=== PATIENT | female | born 1965 | race African-American/Black ===

== ENCOUNTER 2019-06-26 08:47 | Emergency (ER) | payer BC, MEDICAID ==
[~2019-06-26] VITALS: Ht 175.3 cm; Wt 85.3 kg
[2019-06-26 09:11] VITALS: BP 137/77
[2019-06-26 09:59] LABS: Urine Bacteria NONE SEEN /hpf (None Seen); Urine Blood Negative /uL (Negative); Urine Mucus FEW (None Seen); Urine WBC 1 /hpf (0 - 5)
== END 2019-06-26 10:35 | disposition home or self-care (01) ==
LOC: ER 08:47
DX: M54.42 Lumbago with sciatica, left side (principal); M54.41 Lumbago with sciatica, right side; J45.909 Unspecified asthma, uncomplicated
CPT/HCPCS: 72100; 81001

== ENCOUNTER 2019-07-17 12:08 | Emergency (ER) | payer BC, MEDICAID ==
[~2019-07-17] VITALS: Ht 175.3 cm; Wt 86.2 kg
[2019-07-17] MEDS ORDERED: SODIUM CHLORIDE 0.9% 1,000 ML IVB ONE (12:39)
[2019-07-17] MEDS ORDERED: MORPHINE SULFATE 4 MG/ML SYR/VIAL IV ONE (12:45)
[2019-07-17] MEDS ORDERED: ONDANSETRON HCL 4 MG/2 ML VIAL IV ONE (12:45)
[2019-07-17 13:16] LABS: Eosinophils # (auto) 0.1 uL; Monocytes # (auto) 0.4 uL; Monocytes % (auto) 7.8 % (0.0-12.0)
[2019-07-17 13:18] LABS: Basophils # (auto) 0 uL; Basophils % (auto) 0.6 % (0.0-2.0); Eosinophils % (auto) 1.7 % (0.0-7.0); Hematocrit 38.2 % (36.0-46.0); Lymphocytes # (auto) 1.3 uL; Lymphocytes % (auto) 22.7 % (10.0-50.0); Mean Corpuscular Hemoglobin 22.1 pg (28.0-32.0); Mean Corpuscular Hgb Conc. 31.4 g/dL (32.0-36.0); Mean Corpuscular Volume 70.5 fL (80.0-100.0); Neutrophils # (auto) 3.8 uL; Neutrophils % (auto) 67.2 % (37.0-80.0); Nucleated Red Blood Cells % 0.2 %; Platelet Count (auto) 185 10^3/uL (140-450); Red Blood Cells 5.42 10^6/uL (4.0-5.20); Red Cell Distribution Width 14.7 % (11.8-14.3); White Blood Cell 5.7 10^3/uL (4.4-10.8)
[2019-07-17 15:00] VITALS: BP 127/79
[2019-07-17 15:36] LABS: BUN/Creatinine Ratio 13.6; Potassium 3.9 mmol/L (3.5-5.1)
[2019-07-17 15:37] LABS: Albumin 3.7 g/dL (3.4-5.0); Bilirubin, Total 0.3 mg/dL (0.2-1.0); Calcium 8.6 mg/dL (8.5-10.1); Total Protein 7.9 g/dL (6.4-8.2)
== END 2019-07-17 15:37 | disposition home or self-care (01) ==
LOC: ER 12:08
DX: R10.9 Unspecified abdominal pain (principal); J45.909 Unspecified asthma, uncomplicated; Z90.710 Acquired absence of both cervix and uterus; Z98.51 Tubal ligation status; Z88.0 Allergy status to penicillin
CPT/HCPCS: 36415; 74176; 80053; 83690; 85025; 94761; 96361; 96374; 96375; 99284; J2270; J2405

== ENCOUNTER → 2019-12-20 | Emergency (ER) | payer BC, MEDICAID ==
[~2019-12-20] VITALS: Ht 172.7 cm; Wt 86.2 kg
[~2019-12-20] MED LIST: IBUPROFEN 800 MG TAB PO ONE; KETOROLAC TROMETH 15 mg/ml 1ML VL IV ONE; fentaNYL CITRATE 100 MCG/2 ML VL IV ONE
[2019-12-20 23:00] VITALS: BP 123/73
== END | disposition home or self-care (01) ==
LOC: EDUNIT# 20:45 → EDBD 20:52 → ER 20:52
DX: S52.502A Unspecified fracture of the lower end of left radius, initial encounter for closed fracture (principal); S63.075A Dislocation of distal end of left ulna, initial encounter; S52.612A Displaced fracture of left ulna styloid process, initial encounter for closed fracture; S93.492A Sprain of other ligament of left ankle, initial encounter; S73.102A Unspecified sprain of left hip, initial encounter; J45.909 Unspecified asthma, uncomplicated; Z98.51 Tubal ligation status; Z90.710 Acquired absence of both cervix and uterus; Z88.0 Allergy status to penicillin; W19.XXXA Unspecified fall, initial encounter; Y93.89 Activity, other specified; Y92.89 Other specified places as the place of occurrence of the external cause; Y99.8 Other external cause status
CPT/HCPCS: 29125; 70450; 73080; 73110; 73502; 73610; 96374; 99284; J3010

== ENCOUNTER 2020-03-10 19:16 | Emergency (ER) | payer BC, MEDICAID ==
[~2020-03-10] VITALS: Ht 175.3 cm; Wt 86.2 kg
[2020-03-10 20:24] LABS: Basophils # (auto) 0 10 ^3/uL (0-0.2); Basophils % (auto) 0.4 % (0.0-2.0); Eosinophils # (auto) 0.1 10 ^3/uL (0-0.8); Hemoglobin 12.8 g/dL (12.2-16.2)
[2020-03-10 20:26] LABS: Eosinophils % (auto) 1.1 % (0.0-7.0); Hematocrit 40.8 % (36.0-46.0); Lymphocytes # (auto) 2.2 10 ^3/uL (0.4-5.4); Lymphocytes % (auto) 32.5 % (10.0-50.0); Mean Corpuscular Hemoglobin 22.2 pg (28.0-32.0); Mean Corpuscular Hgb Conc. 31.3 g/dL (32.0-36.0); Mean Corpuscular Volume 70.8 fL (80.0-100.0); Monocytes # (auto) 0.6 10 ^3/uL (0-1.3); Monocytes % (auto) 9.2 % (0.0-12.0); Neutrophils # (auto) 3.8 10 ^3/uL (1.6-8.6); Neutrophils % (auto) 56.8 % (37.0-80.0); Nucleated Red Blood Cells % 0.1 %; Platelet Count (auto) 163 10^3/uL (140-450); Red Blood Cells 5.75 10^6/uL (4.0-5.20); Red Cell Distribution Width 15.1 % (11.8-14.3); White Blood Cell 6.7 10^3/uL (4.4-10.8)
[2020-03-10 20:40] LABS: Anion Gap 8 (5-15); Blood Urea Nitrogen 11 mg/dL (7-18); Calcium 9.2 mg/dL (8.5-10.1); Carbon Dioxide 26 mmol/L (21-32); Chloride 107 mmol/L (98-107); Glucose 89 mg/dL (74-106); Magnesium 2.4 mg/dL (1.6-2.6); Potassium 3.3 mmol/L (3.5-5.1); Sodium 141 mmol/L (136-145)
[2020-03-10 20:42] LABS: Alanine Aminotransferase 21 U/L (13-56); Aspartate Aminotransferase 20 U/L (15-37); BUN/Creatinine Ratio 11.8; GFR African American 80 mL/min; GFR Non-African American 67 mL/min
[2020-03-10 20:44] LABS: Alkaline Phosphatase 154 U/L (45-117); Bilirubin, Total 0.5 mg/dL (0.2-1.0); Total Protein 9.1 g/dL (6.4-8.2)
[2020-03-10 20:58] LABS: Urine Bacteria NONE SEEN /hpf (None Seen); Urine Blood Negative /uL (Negative); Urine Specific Gravity 1.014 (1.001-1.035); Urine WBC 1 /hpf (0 - 5)
[2020-03-10] MEDS ORDERED: SODIUM CHLORIDE 0.9% 1,000 ML IVB ONE (21:03)
[2020-03-10 21:31] LABS: INR 0.96 (0.9-1.15); Partial Thromboplastin Time 26.8 sec (23.64-32.05)
[2020-03-10] MEDS ORDERED: ALBUTEROL SULF HFA 90MCG INH 200DOSE IN SCH (22:00)
[2020-03-10] MEDS ORDERED: POTASSIUM CHL 20 Meq TABLET PO ONE (22:00)
[2020-03-10] MEDS ORDERED: AZITHROMYCIN 500MG/ 250ML 250 ML IV ONE (22:00)
[2020-03-10] MEDS ORDERED: IOHEXOL 350 MG/ML 100ML IJ ONE (22:09)
[2020-03-11 00:08] VITALS: BP 132/59
== END 2020-03-11 01:54 | disposition home or self-care (01) ==
LOC: ER 19:17
DX: J45.909 Unspecified asthma, uncomplicated (principal); Z20.828 Contact with and (suspected) exposure to other viral communicable diseases; J20.9 Acute bronchitis, unspecified; R79.1 Abnormal coagulation profile; E87.6 Hypokalemia; Z86.2 Personal history of diseases of the blood and blood-forming organs and certain disorders involving the immune mechanism
CPT/HCPCS: 36415; 71275; 80053; 81001; 83735; 83880; 84484; 85025; 85379; 85610; 85730; 87070; 87635; 87804; 87880; 93005; 96365; 96366; 99285; J0456; Q9967; U0003; 96368

== ENCOUNTER 2020-06-16 06:18 | Emergency (ER) | payer BC, MEDICAID ==
[~2020-06-16] VITALS: Ht 177.8 cm; Wt 84.8 kg
[2020-06-16 07:06] LABS: Basophils # (auto) 0 10 ^3/uL (0-0.2); Eosinophils # (auto) 0.1 10 ^3/uL (0-0.8); Hematocrit 36.4 % (36.0-46.0); Hemoglobin 11.5 g/dL (12.2-16.2); Mean Corpuscular Hemoglobin 22.1 pg (28.0-32.0); Monocytes # (auto) 0.6 10 ^3/uL (0-1.3); Red Blood Cells 5.19 10^6/uL (4.0-5.20)
[2020-06-16 07:08] LABS: Basophils % (auto) 0.4 % (0.0-2.0); Eosinophils % (auto) 2.1 % (0.0-7.0); Lymphocytes # (auto) 1.6 10 ^3/uL (0.4-5.4); Lymphocytes % (auto) 34.3 % (10.0-50.0); Mean Corpuscular Hgb Conc. 31.6 g/dL (32.0-36.0); Monocytes % (auto) 13.5 % (0.0-12.0); Neutrophils # (auto) 2.3 10 ^3/uL (1.6-8.6); Neutrophils % (auto) 49.7 % (37.0-80.0); Platelet Count (auto) 165 10^3/uL (140-450); Red Cell Distribution Width 14.5 % (11.8-14.3); White Blood Cell 4.7 10^3/uL (4.4-10.8)
[2020-06-16 07:22] LABS: Albumin 3.8 g/dL (3.4-5.0); Anion Gap 5 (5-15); Blood Urea Nitrogen 13 mg/dL (7-18); Carbon Dioxide 25 mmol/L (21-32); Chloride 110 mmol/L (98-107); Glucose 89 mg/dL (74-106); Sodium 140 mmol/L (136-145)
[2020-06-16 07:26] LABS: INR 0.98 (0.9-1.15); Partial Thromboplastin Time 26.2 sec (23.0-31.2)
[2020-06-16 07:29] LABS: Alanine Aminotransferase 20 U/L (13-56); Alkaline Phosphatase 132 U/L (45-117); Aspartate Aminotransferase 17 U/L (15-37); BUN/Creatinine Ratio 16.7; Bilirubin, Total 0.4 mg/dL (0.2-1.0); GFR African American 99 mL/min; GFR Non-African American 81 mL/min
[2020-06-16] MEDS ORDERED: MECLIZINE HCL 25 MG TAB PO ONE (09:00)
[2020-06-16] MEDS ORDERED: IPRATROPIUM BROM 0.5 MG/2.5ML INH SOL NEB ONE ×2 (09:00→13:15)
[2020-06-16] MEDS ORDERED: methylPREDNISolone SOD SUCC 125 MG/2 ML VL IV ONE (09:00)
[2020-06-16] MEDS ORDERED: ALBUTEROL SULF 2.5 MG/0.5ML(0.5%) NEB SOLN NEB ONE ×2 (09:00→13:15)
[2020-06-16] MEDS ORDERED: AZITHROMYCIN 500MG/ 250ML 250 ML IV ONE (09:00)
[2020-06-16 10:09] LABS: Urine Bacteria FEW /hpf (None Seen); Urine Blood Negative /uL (Negative); Urine Specific Gravity 1.012 (1.001-1.035); Urine WBC 4 /hpf (0 - 5)
[2020-06-16] MEDS ORDERED: KETOROLAC TROMETH 30 MG/ML 1ML VIAL IV ONE (13:15)
[2020-06-16 14:00] VITALS: BP 126/63
== END 2020-06-16 16:26 | disposition home or self-care (01) ==
LOC: ER 06:18
DX: J45.41 Moderate persistent asthma with (acute) exacerbation (principal); N39.0 Urinary tract infection, site not specified; Z20.828 Contact with and (suspected) exposure to other viral communicable diseases
CPT/HCPCS: 36415; 71045; 80053; 81001; 83880; 84484; 85025; 85610; 85730; 87426; 93005; 94640; 96365; 96366; 96375; 99285; C9803; J0456; J1885; J2930; J8597; U0003

== ENCOUNTER 2020-08-10 06:22 | Emergency (ER) | payer BC, MEDICAID ==
[~2020-08-10] VITALS: Ht 180.3 cm; Wt 86.2 kg
[2020-08-10] MEDS ORDERED: SODIUM CHLORIDE 0.9% 1,000 ML IV ONE ×2 (07:00)
[2020-08-10 07:16] LABS: Basophils # (auto) 0 10 ^3/uL (0-0.2); Hematocrit 37.5 % (36.0-46.0); Neutrophils # (auto) 2.5 10 ^3/uL (1.6-8.6); Red Blood Cells 5.29 10^6/uL (4.0-5.20); White Blood Cell 4.8 10^3/uL (4.4-10.8)
[2020-08-10 07:20] LABS: Basophils % (auto) 0.7 % (0.0-2.0); Eosinophils # (auto) 0.2 10 ^3/uL (0-0.8); Eosinophils % (auto) 3.7 % (0.0-7.0); Hemoglobin 11.6 g/dL (12.2-16.2); Lymphocytes # (auto) 1.4 10 ^3/uL (0.4-5.4); Lymphocytes % (auto) 29.7 % (10.0-50.0); Monocytes # (auto) 0.7 10 ^3/uL (0-1.3); Monocytes % (auto) 13.9 % (0.0-12.0); Nucleated Red Blood Cells % 0.2 %; Platelet Count (auto) 165 10^3/uL (140-450); Red Cell Distribution Width 14.8 % (11.8-14.3)
[2020-08-10 07:33] LABS: Albumin 3.5 g/dL (3.4-5.0); Calcium 8.7 mg/dL (8.5-10.1)
[2020-08-10 07:37] LABS: BUN/Creatinine Ratio 12.1; Bilirubin, Total 0.4 mg/dL (0.2-1.0); Total Protein 7.9 g/dL (6.4-8.2)
[2020-08-10 07:50] LABS: INR 0.97 (0.9-1.15); Partial Thromboplastin Time 25.9 sec (23.0-31.2)
[2020-08-10 10:29] LABS: Urine Bacteria FEW /hpf (None Seen); Urine Blood Negative /uL (Negative); Urine Mucus FEW (None Seen); Urine Specific Gravity 1.011 (1.001-1.035); Urine WBC 4 /hpf (0 - 5)
[2020-08-10] MEDS ORDERED: IOHEXOL 350 MG/ML 100ML IJ ONE (11:12)
[2020-08-10] MEDS ORDERED: cefTRIAXone 1GM/50ML D5W 50 ML IV ONE (11:15)
[2020-08-10] MEDS ORDERED: ACETAMINOPHEN 500 MG TAB PO ONE (11:15)
[2020-08-10 13:05] VITALS: BP 124/78
== END 2020-08-10 13:30 | disposition home or self-care (01) ==
LOC: ER 06:22
DX: E86.0 Dehydration (principal); M79.18 Myalgia, other site; J45.909 Unspecified asthma, uncomplicated; Z98.51 Tubal ligation status; Z90.710 Acquired absence of both cervix and uterus; Z88.0 Allergy status to penicillin; Z88.6 Allergy status to analgesic agent
CPT/HCPCS: 36415; 71045; 71275; 80053; 81001; 85025; 85045; 85379; 85610; 85730; 96361; 96365; 99285; J0696; J7030; Q9967

== ENCOUNTER 2020-08-16 14:34 | Emergency (ER) | payer BC, MEDICAID ==
[~2020-08-16] VITALS: Ht 175.3 cm; Wt 85.7 kg
[2020-08-16 15:18] VITALS: BP 140/83
== END 2020-08-16 17:23 | disposition home or self-care (01) ==
LOC: ER 14:34
DX: R05 Cough (principal); R19.7 Diarrhea, unspecified; R11.0 Nausea; Z53.21 Procedure and treatment not carried out due to patient leaving prior to being seen by health care provider
CPT/HCPCS: 36415; 87426; 99283; J7030

== ENCOUNTER 2020-08-23 17:32 | Emergency (ER) | payer BC, MEDICAID ==
[~2020-08-23] VITALS: Ht 175.3 cm; Wt 86.2 kg
[2020-08-23 17:42] VITALS: BP 114/70
[2020-08-23 20:31] LABS: Basophils # (auto) 0 10 ^3/uL (0-0.2); Basophils % (auto) 0.4 % (0.0-2.0); Eosinophils # (auto) 0.1 10 ^3/uL (0-0.8); Hemoglobin 13.5 g/dL (12.2-16.2); Monocytes # (auto) 0.5 10 ^3/uL (0-1.3); Neutrophils # (auto) 3.9 10 ^3/uL (1.6-8.6); Nucleated Red Blood Cells % 0.2 %
[2020-08-23 20:32] LABS: Eosinophils % (auto) 1.7 % (0.0-7.0); Hematocrit 44.1 % (36.0-46.0); Lymphocytes # (auto) 2.5 10 ^3/uL (0.4-5.4); Lymphocytes % (auto) 35.6 % (10.0-50.0); Mean Corpuscular Hemoglobin 21.9 pg (28.0-32.0); Mean Corpuscular Hgb Conc. 30.5 g/dL (32.0-36.0); Mean Corpuscular Volume 71.6 fL (80.0-100.0); Monocytes % (auto) 7.1 % (0.0-12.0); Neutrophils % (auto) 55.2 % (37.0-80.0); Platelet Count (auto) 204 10^3/uL (140-450); Red Blood Cells 6.16 10^6/uL (4.0-5.20); Red Cell Distribution Width 15.3 % (11.8-14.3); White Blood Cell 7.1 10^3/uL (4.4-10.8)
[2020-08-23 20:39] LABS: Alanine Aminotransferase 23 U/L (13-56); Albumin 4.8 g/dL (3.4-5.0); Anion Gap 6 (5-15); Aspartate Aminotransferase 23 U/L (15-37); Blood Urea Nitrogen 13 mg/dL (7-18); Calcium 9.4 mg/dL (8.5-10.1); Carbon Dioxide 28 mmol/L (21-32); Chloride 105 mmol/L (98-107); Glucose 99 mg/dL (74-106); Magnesium 2.6 mg/dL (1.6-2.6); Potassium 3.7 mmol/L (3.5-5.1); Sodium 139 mmol/L (136-145)
[2020-08-23 20:44] LABS: Alkaline Phosphatase 170 U/L (45-117); BUN/Creatinine Ratio 13.7; Bilirubin, Total 0.4 mg/dL (0.2-1.0); GFR African American 78 mL/min; GFR Non-African American 65 mL/min; Total Protein 9.9 g/dL (6.4-8.2)
[2020-08-24] MEDS ORDERED: IPRATROPIUM BROM 0.5 MG/2.5ML INH SOL NEB ONE (00:30)
[2020-08-24] MEDS ORDERED: ALBUTEROL SULF 2.5 MG/0.5ML(0.5%) NEB SOLN NEB ONE (00:30)
[2020-08-24] MEDS ORDERED: DexAMETHasone SOD PHOS 10MG/1ML VIAL INJ IM ONE (00:30)
== END 2020-08-24 03:07 | disposition home or self-care (01) ==
LOC: ER 17:34
DX: J45.51 Severe persistent asthma with (acute) exacerbation (principal); Z20.828 Contact with and (suspected) exposure to other viral communicable diseases
CPT/HCPCS: 36415; 71045; 80053; 82728; 83735; 84443; 84484; 85025; 87426; 99284; J1100

== ENCOUNTER 2021-02-04 09:52 | Inpatient (IN) | payer BC, MEDICAID ==
[~2021-02-04] VITALS: Ht 175.3 cm; Wt 89.4 kg
[2021-02-04 10:34] LABS: Basophils # (auto) 0 10 ^3/uL (0-0.2); Basophils % (auto) 0.3 % (0.0-2.0); Eosinophils # (auto) 0.1 10 ^3/uL (0-0.8); Eosinophils % (auto) 1.7 % (0.0-7.0); Hematocrit 30.5 % (36.0-46.0); Hemoglobin 9.8 g/dL (12.2-16.2); Lymphocytes # (auto) 1.5 10 ^3/uL (0.4-5.4); Lymphocytes % (auto) 21.8 % (10.0-50.0); Mean Corpuscular Hemoglobin 22.4 pg (28.0-32.0); Mean Corpuscular Hgb Conc. 32.1 g/dL (32.0-36.0); Mean Corpuscular Volume 69.7 fL (80.0-100.0); Monocytes # (auto) 0.6 10 ^3/uL (0-1.3); Monocytes % (auto) 8.2 % (0.0-12.0); Neutrophils # (auto) 4.7 10 ^3/uL (1.6-8.6); Platelet Count (auto) 162 10^3/uL (140-450); Red Blood Cells 4.37 10^6/uL (4.0-5.20); Red Cell Distribution Width 14.1 % (11.8-14.3)
[2021-02-04 10:49] LABS: Albumin 3.1 g/dL (3.4-5.0); Anion Gap 5 (5-15); Blood Urea Nitrogen 13 mg/dL (7-18); Calcium 8.8 mg/dL (8.5-10.1); Carbon Dioxide 28 mmol/L (21-32); Chloride 106 mmol/L (98-107); Glucose 105 mg/dL (74-106); Potassium 3.4 mmol/L (3.5-5.1); Sodium 139 mmol/L (136-145)
[2021-02-04] MEDS ORDERED: IOHEXOL 350 MG/ML 100ML IJ ONE (10:51)
[2021-02-04 10:56] LABS: Alanine Aminotransferase 19 U/L (13-56); Alkaline Phosphatase 101 U/L (45-117); Aspartate Aminotransferase 28 U/L (15-37); BUN/Creatinine Ratio 17.3; Bilirubin, Total 0.7 mg/dL (0.2-1.0); GFR African American 103 mL/min; GFR Non-African American 85 mL/min; Total Protein 7.5 g/dL (6.4-8.2)
[2021-02-04] MEDS ORDERED: SODIUM CHLORIDE 0.9% 1,000 ML IV ONE (13:15)
[2021-02-04] MEDS ORDERED: LORazepam 0.5 MG TAB PO PRN (13:15)
[2021-02-04] MEDS ORDERED: LACTULOSE 20Gm/30ML SOLN PO PRN (13:15)
[2021-02-04] MEDS ORDERED: POTASSIUM CHL 20 Meq TABLET PO ONE (13:15)
[2021-02-04] MEDS ORDERED: SODIUM CHLORIDE 0.9% 2,000 ML IV ONE (13:15)
[2021-02-04] MEDS ORDERED: DOCUSATE CALCIUM 240 MG CAP PO PRN (13:15)
[2021-02-04] MEDS ORDERED: MORPHINE SULF INJ 2 MG/ML SYRINGE 1ML IV PRN ×3 (13:15→14:45)
[2021-02-04] MEDS ORDERED: NITROGLYCERIN 0.4 MG SL TAB SL PRN (13:15)
[2021-02-04] MEDS ORDERED: hydrALAZINE HCL 20 MG/ML VL IV PRN (13:15)
[2021-02-04] MEDS ORDERED: ONDANSETRON HCL 4 MG/2 ML VIAL IV PRN (13:15)
[2021-02-04 13:30] VITALS: BP 127/82
[2021-02-04 13:56] LABS: Urine Bacteria NONE SEEN /hpf (None Seen); Urine Blood Negative /uL (Negative); Urine Mucus FEW (None Seen); Urine WBC <1 /hpf (0 - 5)
[2021-02-04 14:00] LABS: Urine Specific Gravity 1.035 (1.001-1.035)
[2021-02-04 14:19] VITALS: BP 120/80
[2021-02-04] MEDS ORDERED: AZITHROMYCIN 250 MG TAB PO ONE (14:30)
[2021-02-04 16:25] VITALS: BP 103/64
[2021-02-04] MEDS: ALBUTEROL SULF 2.5 MG/0.5ML(0.5%) NEB SOLN NEB PRN (19:25)
[2021-02-04] MEDS: IPRATROPIUM BROM 0.5 MG/2.5ML INH SOL NEB SCH (19:25)
[2021-02-04] MEDS: BUDESONIDE (INHALATION) 0.5 MG/2 ML NEB NEB SCH (19:25)
[2021-02-04] MEDS: methylPREDNISolone SOD SUCC 125 MG/2 ML VL IV SCH (21:01)
[2021-02-04 22:00] VITALS: BP 107/74
[2021-02-05] MEDS: ALBUTEROL SULF 2.5 MG/0.5ML(0.5%) NEB SOLN NEB PRN (00:39)
[2021-02-05] MEDS: IPRATROPIUM BROM 0.5 MG/2.5ML INH SOL NEB SCH ×4 (00:39→18:45)
[2021-02-05] MEDS ORDERED: FUROSEMIDE 20 MG/2 ML VIAL IV ONE (02:30)
[2021-02-05 05:00] VITALS: BP 116/69
[2021-02-05] MEDS: BUDESONIDE (INHALATION) 0.5 MG/2 ML NEB NEB SCH ×2 (05:50→18:46)
[2021-02-05] MEDS ORDERED: SERT50TA19 PO (06:31)
[2021-02-05] MEDS ORDERED: CYCL-611 PO (06:31)
[2021-02-05 06:59] LABS: Basophils # (auto) 0 10 ^3/uL (0-0.2); Basophils % (auto) 0.1 % (0.0-2.0); Eosinophils # (auto) 0 10 ^3/uL (0-0.8); Eosinophils % (auto) 0.1 % (0.0-7.0); Hemoglobin 9.8 g/dL (12.2-16.2); Monocytes # (auto) 0.1 10 ^3/uL (0-1.3); White Blood Cell 4.5 10^3/uL (4.4-10.8)
[2021-02-05 07:02] LABS: Lymphocytes # (auto) 0.4 10 ^3/uL (0.4-5.4); Mean Corpuscular Hemoglobin 22.6 pg (28.0-32.0); Mean Corpuscular Hgb Conc. 32.5 g/dL (32.0-36.0); Mean Corpuscular Volume 69.4 fL (80.0-100.0); Monocytes % (auto) 1.2 % (0.0-12.0); Neutrophils % (auto) 88.6 % (37.0-80.0); Nucleated Red Blood Cells % 0.2 %; Platelet Count (auto) 167 10^3/uL (140-450); Red Blood Cells 4.33 10^6/uL (4.0-5.20); Red Cell Distribution Width 14.3 % (11.8-14.3)
[2021-02-05 07:14] LABS: INR 0.97 (0.9-1.15)
[2021-02-05 07:16] LABS: Potassium 4.1 mmol/L (3.5-5.1)
[2021-02-05 07:23] LABS: Albumin 3.1 g/dL (3.4-5.0); BUN/Creatinine Ratio 13.6; Bilirubin, Total 0.5 mg/dL (0.2-1.0); Calcium 8.9 mg/dL (8.5-10.1); Total Protein 7.8 g/dL (6.4-8.2)
[2021-02-05 09:00] VITALS: BP 111/71
[2021-02-05] MEDS: methylPREDNISolone SOD SUCC 125 MG/2 ML VL IV SCH ×2 (09:22→21:31)
[2021-02-05] MEDS: ENOXAPARIN SOD 40 MG/0.4 ML SYRINGE SC SCH (09:22)
[2021-02-05] MEDS: PANTOPRAZOLE 40 MG TAB PO SCH (09:22)
[2021-02-05] MEDS: AZITHROMYCIN 250 MG TAB PO SCH (09:22)
[2021-02-05 13:00] VITALS: BP 106/68
[2021-02-05 16:57] VITALS: BP 110/72
[2021-02-05] MEDS: LACTULOSE 20Gm/30ML SOLN PO PRN (17:24)
[2021-02-05] MEDS: ACETAMINOPHEN 500 MG TAB PO PRN (20:35)
[2021-02-05 22:00] VITALS: BP 115/82
[2021-02-06] MEDS: ALBUTEROL SULF 2.5 MG/0.5ML(0.5%) NEB SOLN NEB PRN ×3 (00:14→19:03)
[2021-02-06] MEDS: IPRATROPIUM BROM 0.5 MG/2.5ML INH SOL NEB SCH ×4 (00:14→19:03)
[2021-02-06 05:00] VITALS: BP 126/69
[2021-02-06 05:13] LABS: Basophils # (auto) 0 10 ^3/uL (0-0.2); Eosinophils # (auto) 0 10 ^3/uL (0-0.8); Mean Corpuscular Hgb Conc. 30.8 g/dL (32.0-36.0); Nucleated Red Blood Cells % 0.1 %
[2021-02-06 05:15] LABS: Basophils % (auto) 0.3 % (0.0-2.0); Hematocrit 33.1 % (36.0-46.0); Hemoglobin 10.2 g/dL (12.2-16.2); Lymphocytes # (auto) 0.9 10 ^3/uL (0.4-5.4); Lymphocytes % (auto) 6.7 % (10.0-50.0); Mean Corpuscular Hemoglobin 21.9 pg (28.0-32.0); Mean Corpuscular Volume 71.2 fL (80.0-100.0); Monocytes # (auto) 0.4 10 ^3/uL (0-1.3); Monocytes % (auto) 2.7 % (0.0-12.0); Neutrophils # (auto) 12.2 10 ^3/uL (1.6-8.6); Neutrophils % (auto) 90.3 % (37.0-80.0); Platelet Count (auto) 187 10^3/uL (140-450); Red Blood Cells 4.65 10^6/uL (4.0-5.20); Red Cell Distribution Width 14.2 % (11.8-14.3); White Blood Cell 13.5 10^3/uL (4.4-10.8)
[2021-02-06 05:34] LABS: Chloride 107 mmol/L (98-107); Potassium 4.4 mmol/L (3.5-5.1); Sodium 137 mmol/L (136-145)
[2021-02-06 05:43] LABS: Alanine Aminotransferase 20 U/L (13-56); Alkaline Phosphatase 99 U/L (45-117); Anion Gap 5 (5-15); Aspartate Aminotransferase 20 U/L (15-37); BUN/Creatinine Ratio 20.7; Bilirubin, Total 0.6 mg/dL (0.2-1.0); Blood Urea Nitrogen 17 mg/dL (7-18); Calcium 9.2 mg/dL (8.5-10.1); Carbon Dioxide 25 mmol/L (21-32); GFR African American 93 mL/min; GFR Non-African American 77 mL/min; Glucose 163 mg/dL (74-106); Total Protein 7.7 g/dL (6.4-8.2)
[2021-02-06] MEDS: ACETAMINOPHEN 500 MG TAB PO PRN (06:24)
[2021-02-06] MEDS: LACTULOSE 20Gm/30ML SOLN PO PRN ×2 (06:25→22:12)
[2021-02-06] MEDS: BUDESONIDE (INHALATION) 0.5 MG/2 ML NEB NEB SCH ×2 (07:09→19:03)
[2021-02-06 09:00] VITALS: BP 123/72
[2021-02-06] MEDS: methylPREDNISolone SOD SUCC 125 MG/2 ML VL IV SCH ×2 (09:34→22:12)
[2021-02-06] MEDS: PANTOPRAZOLE 40 MG TAB PO SCH (09:35)
[2021-02-06] MEDS: AZITHROMYCIN 250 MG TAB PO SCH (09:35)
[2021-02-06] MEDS: ENOXAPARIN SOD 40 MG/0.4 ML SYRINGE SC SCH (09:35)
[2021-02-06 12:35] VITALS: BP 125/75
[2021-02-06 17:00] VITALS: BP 119/63
[2021-02-06 21:38] VITALS: BP 111/87
[2021-02-07] MEDS: ALBUTEROL SULF 2.5 MG/0.5ML(0.5%) NEB SOLN NEB PRN ×3 (00:46→11:21)
[2021-02-07] MEDS: IPRATROPIUM BROM 0.5 MG/2.5ML INH SOL NEB SCH ×3 (00:46→11:21)
[2021-02-07 03:20] VITALS: BP 111/87
[2021-02-07 05:00] VITALS: BP 100/70
[2021-02-07] MEDS: BUDESONIDE (INHALATION) 0.5 MG/2 ML NEB NEB SCH (05:22)
[2021-02-07 06:05] LABS: Mean Corpuscular Hgb Conc. 31.8 g/dL (32.0-36.0)
[2021-02-07 06:13] LABS: Hematocrit 32.8 % (36.0-46.0); Hemoglobin 10.4 g/dL (12.2-16.2); Mean Corpuscular Hemoglobin 22.6 pg (28.0-32.0); Mean Corpuscular Volume 71.2 fL (80.0-100.0); Platelet Count (auto) 184 10^3/uL (140-450); Red Cell Distribution Width 14.2 % (11.8-14.3); White Blood Cell 17.2 10^3/uL (4.4-10.8)
[2021-02-07 06:23] LABS: Basophils % (manual) 0 (0.0-2.0); Blast Cells 0; Eosinophils % (manual) 0 (0-7); Metamyelocytes % 0; Myelocytes % 0; Promyelocytes % 0; Reactive Lymphocytes 0
[2021-02-07 06:27] LABS: Potassium 4.7 mmol/L (3.5-5.1)
[2021-02-07 06:43] LABS: BUN/Creatinine Ratio 22.4; Calcium 9.2 mg/dL (8.5-10.1)
[2021-02-07 08:37] LABS: Band Neutrophils % (manual) 11; Lymphocytes % (manual) 12 (10.0-50.0); Monocytes % (manual) 2 (0-12)
[2021-02-07 09:00] VITALS: BP 122/69
[2021-02-07] MEDS: methylPREDNISolone SOD SUCC 125 MG/2 ML VL IV SCH (09:05)
[2021-02-07] MEDS: PANTOPRAZOLE 40 MG TAB PO SCH (09:06)
[2021-02-07] MEDS: ENOXAPARIN SOD 40 MG/0.4 ML SYRINGE SC SCH (09:06)
[2021-02-07] MEDS ORDERED: AZITHROMYCIN 250 MG TAB PO SCH (10:00)
[2021-02-07 12:54] VITALS: BP 129/66
[2021-02-07 14:11] VITALS: BP 109/60
== END 2021-02-07 15:00 | disposition home or self-care (01) | DRG 202 ==
LOC: ER 09:52 → TELE 13:03 → TELE-CENTR 14:43
PROVIDERS: ADMIT Family Medicine; ATTEND Internal Medicine
DX: J45.901 Unspecified asthma with (acute) exacerbation (principal); N17.0 Acute kidney failure with tubular necrosis; D57.40 Sickle-cell thalassemia without crisis; Z20.822 Contact with and (suspected) exposure to COVID-19; E87.6 Hypokalemia; J20.9 Acute bronchitis, unspecified; K59.09 Other constipation; N18.9 Chronic kidney disease, unspecified; R73.9 Hyperglycemia, unspecified; Z83.3 Family history of diabetes mellitus; Z79.899 Other long term (current) drug therapy; Z80.9 Family history of malignant neoplasm, unspecified; Z88.5 Allergy status to narcotic agent; Z90.710 Acquired absence of both cervix and uterus; Z98.51 Tubal ligation status; Z98.84 Bariatric surgery status
CPT/HCPCS: 36415; 71045; 71275; 80048; 80053; 81001; 83036; 83880; 84443; 84484; 85007; 85025; 85027; 85379; 85610; 87426; 93971; 94640; 96360; 99291; G0378; J2405

== ENCOUNTER 2021-02-08 17:03 | Inpatient (IN) | payer BC, MEDICAID ==
[~2021-02-08] VITALS: Ht 170.2 cm; Wt 88.4 kg
[~2021-02-08 17:03] MED LIST changes: +CYCL-611 PO; -IBUPROFEN 800 MG TAB PO ONE; -KETOROLAC TROMETH 15 mg/ml 1ML VL IV ONE; +SERT50TA19 PO; -fentaNYL CITRATE 100 MCG/2 ML VL IV ONE
[2021-02-08 17:50] LABS: Basophils # (auto) 0 10 ^3/uL (0-0.2); Basophils % (auto) 0.2 % (0.0-2.0); Eosinophils # (auto) 0 10 ^3/uL (0-0.8); Eosinophils % (auto) 0.4 % (0.0-7.0); Hematocrit 34.8 % (36.0-46.0); Lymphocytes # (auto) 3.7 10 ^3/uL (0.4-5.4); Lymphocytes % (auto) 28.8 % (10.0-50.0); Mean Corpuscular Hemoglobin 22.1 pg (28.0-32.0); Mean Corpuscular Hgb Conc. 31.6 g/dL (32.0-36.0); Mean Corpuscular Volume 69.9 fL (80.0-100.0); Monocytes # (auto) 0.8 10 ^3/uL (0-1.3); Monocytes % (auto) 6.3 % (0.0-12.0); Neutrophils # (auto) 8.3 10 ^3/uL (1.6-8.6); Neutrophils % (auto) 64.3 % (37.0-80.0); Nucleated Red Blood Cells % 0.2 %; Platelet Count (auto) 269 10^3/uL (140-450); Red Blood Cells 4.98 10^6/uL (4.0-5.20); Red Cell Distribution Width 14.1 % (11.8-14.3); White Blood Cell 12.9 10^3/uL (4.4-10.8)
[2021-02-08 18:07] LABS: Albumin 3.7 g/dL (3.4-5.0); Calcium 8.9 mg/dL (8.5-10.1); Potassium 3.1 mmol/L (3.5-5.1)
[2021-02-08 18:12] LABS: BUN/Creatinine Ratio 20.7; Bilirubin, Total 0.7 mg/dL (0.2-1.0); Total Protein 8.2 g/dL (6.4-8.2)
[2021-02-08] MEDS ORDERED: SODIUM CHLORIDE 0.9% 1,000 ML IV ONE (19:15)
[2021-02-08] MEDS ORDERED: ONDANSETRON HCL 4 MG/2 ML VIAL IV ONE (19:15)
[2021-02-08] MEDS ORDERED: HYDROmorphone HCL 2 MG/ML VL IV ONE (19:15)
[2021-02-08] MEDS ORDERED: HYDROcodone-ACET 5/325MG TAB PO PRN (21:15)
[2021-02-08] MEDS ORDERED: ALBUTEROL SULF 2.5 MG/0.5ML(0.5%) NEB SOLN NEB PRN (21:15)
[2021-02-08] MEDS: SODIUM CHLORIDE 0.9% 1,000 ML IV SCH (21:15)
[2021-02-08] MEDS ORDERED: ONDANSETRON HCL 4 MG/2 ML VIAL IV PRN (21:15)
[2021-02-08] MEDS ORDERED: MORPHINE SULF INJ 2 MG/ML SYRINGE 1ML IV PRN (21:15)
[2021-02-08] MEDS ORDERED: TEMAZEPAM 15 MG CAP PO PRN (22:00)
[2021-02-08] MEDS: FAMOTIDINE 20 MG TAB PO SCH (22:59)
[2021-02-08] MEDS ORDERED: POTASSIUM CHL 20 Meq TABLET PO ONE (23:30)
[2021-02-09] VITALS (7 sets, daily range): BP systolic 107–123; BP diastolic 64–77
[2021-02-09 06:48] LABS: Basophils # (auto) 0 10 ^3/uL (0-0.2); Basophils % (auto) 0.1 % (0.0-2.0); Eosinophils # (auto) 0.1 10 ^3/uL (0-0.8); Hemoglobin 9.6 g/dL (12.2-16.2); Monocytes # (auto) 0.5 10 ^3/uL (0-1.3); Nucleated Red Blood Cells % 0.2 %; Red Blood Cells 4.23 10^6/uL (4.0-5.20)
[2021-02-09 06:49] LABS: Eosinophils % (auto) 1.2 % (0.0-7.0); Hematocrit 29.9 % (36.0-46.0); Lymphocytes # (auto) 2.7 10 ^3/uL (0.4-5.4); Lymphocytes % (auto) 34.9 % (10.0-50.0); Mean Corpuscular Hemoglobin 22.7 pg (28.0-32.0); Mean Corpuscular Hgb Conc. 32.2 g/dL (32.0-36.0); Mean Corpuscular Volume 70.6 fL (80.0-100.0); Monocytes % (auto) 6.4 % (0.0-12.0); Neutrophils # (auto) 4.4 10 ^3/uL (1.6-8.6); Neutrophils % (auto) 57.4 % (37.0-80.0); Platelet Count (auto) 190 10^3/uL (140-450); Red Cell Distribution Width 14.5 % (11.8-14.3); White Blood Cell 7.6 10^3/uL (4.4-10.8)
[2021-02-09 07:05] LABS: BUN/Creatinine Ratio 26.6; Potassium 3.8 mmol/L (3.5-5.1)
[2021-02-09] MEDS ORDERED: AZITHROMYCIN 250 MG TAB PO ONE (08:30)
[2021-02-09] MEDS: FAMOTIDINE 20 MG TAB PO SCH ×2 (09:39→22:19)
[2021-02-09] MEDS: levoFLOXacin 750MG 150 ML IV SCH (09:39)
[2021-02-09] MEDS: SERTRALINE HCL 50 MG TAB PO SCH (09:49)
[2021-02-09] MEDS: SODIUM CHLORIDE 0.9% 1,000 ML IV SCH ×2 (09:49→22:20)
[2021-02-09 11:06] LABS: % Iron Saturation 17.7 % (15-50)
[2021-02-09] MEDS ORDERED: IRON SUCROSE COMPLEX 200 MG in SODIUM CHL 0.9% 100 ML IV SCH (12:00)
[2021-02-09] MEDS: SODIUM FERR GLUC 125 MG in NS 100 ML IV SCH (12:41)
[2021-02-09 15:59] LABS: Urine Bacteria FEW /hpf (None Seen); Urine Blood Negative /uL (Negative); Urine Specific Gravity 1.014 (1.001-1.035); Urine WBC 3 /hpf (0 - 5)
[2021-02-09] MEDS ORDERED: LORazepam 2MG/ML-1ML VIAL IV PRN ×2 (21:15→21:45)
[2021-02-09 21:36] LABS: Folate (Folic Acid) 10.27 ng/mL (5.38-24)
[2021-02-09] MEDS: ACETAMINOPHEN 325 MG TAB PO PRN (22:21)
[2021-02-10 04:53] VITALS: BP 121/78
[2021-02-10 09:00] VITALS: BP 115/72
[2021-02-10] MEDS: FAMOTIDINE 20 MG TAB PO SCH ×2 (09:29→22:20)
[2021-02-10] MEDS: SERTRALINE HCL 50 MG TAB PO SCH (09:29)
[2021-02-10] MEDS ORDERED: AZITHROMYCIN 250 MG TAB PO SCH (10:00)
[2021-02-10] MEDS: levoFLOXacin 750MG 150 ML IV SCH (11:37)
[2021-02-10 13:00] VITALS: BP 123/67
[2021-02-10] MEDS: ALBUTEROL SULF 2.5 MG/0.5ML(0.5%) NEB SOLN NEB SCH ×2 (13:32→18:50)
[2021-02-10] MEDS: SODIUM FERR GLUC 125 MG in NS 100 ML IV SCH (14:35)
[2021-02-10] MEDS: SODIUM CHLORIDE 0.9% 1,000 ML IV SCH ×2 (14:35→22:20)
[2021-02-10 16:55] VITALS: BP 124/62
[2021-02-10] MEDS: BUDESONIDE (INHALATION) 0.5 MG/2 ML NEB NEB SCH (18:51)
[2021-02-10 20:00] VITALS: BP 133/71
[2021-02-10 22:00] VITALS: BP 117/65
[2021-02-11] MEDS: ALBUTEROL SULF 2.5 MG/0.5ML(0.5%) NEB SOLN NEB SCH ×3 (00:10→12:16)
[2021-02-11 05:00] VITALS: BP 113/76
[2021-02-11] MEDS: BUDESONIDE (INHALATION) 0.5 MG/2 ML NEB NEB SCH (07:00)
[2021-02-11 08:00] VITALS: BP 113/62
[2021-02-11 09:00] VITALS: BP 113/62
[2021-02-11] MEDS: SERTRALINE HCL 50 MG TAB PO SCH (10:00)
[2021-02-11] MEDS: levoFLOXacin 750MG 150 ML IV SCH (10:49)
[2021-02-11] MEDS: SODIUM CHLORIDE 0.9% 1,000 ML IV SCH (10:49)
[2021-02-11] MEDS: FAMOTIDINE 20 MG TAB PO SCH (10:50)
[2021-02-11] MEDS: SODIUM FERR GLUC 125 MG in NS 100 ML IV SCH (12:25)
[2021-02-11] MEDS: ACETAMINOPHEN 325 MG TAB PO PRN (12:39)
[2021-02-11] MEDS ORDERED: ALB5IS NEB (12:56)
[2021-02-11] MEDS ORDERED: LEVO750T64 PO (12:56)
[2021-02-11] MEDS ORDERED: FER325T PO (12:56)
[2021-02-11 13:00] VITALS: BP 119/79
[2021-02-11] MEDS ORDERED: IPR002IS NEB (14:56)
[2021-02-11] MEDS ORDERED: IPRATROPIUM BROM 0.5 MG/2.5ML INH SOL NEB SCH (18:00)
== END 2021-02-11 17:22 | disposition home or self-care (01) | DRG 811 ==
LOC: ER 17:03 → OVERFLOW 21:06 → WEST WING 23:31
PROVIDERS: ADMIT Nurse Practitioner; ATTEND Internal Medicine
DX: D57.419 Sickle-cell thalassemia, unspecified, with crisis (principal); J18.9 Pneumonia, unspecified organism; J45.901 Unspecified asthma with (acute) exacerbation; J98.11 Atelectasis; E66.01 Morbid (severe) obesity due to excess calories; F32.9 Major depressive disorder, single episode, unspecified; F41.9 Anxiety disorder, unspecified; Z20.822 Contact with and (suspected) exposure to COVID-19; R51.9 Headache, unspecified; R29.6 Repeated falls; D50.9 Iron deficiency anemia, unspecified; E87.6 Hypokalemia; Z80.9 Family history of malignant neoplasm, unspecified; Z83.3 Family history of diabetes mellitus; Z90.710 Acquired absence of both cervix and uterus; Z98.84 Bariatric surgery status; Z88.5 Allergy status to narcotic agent; Z88.0 Allergy status to penicillin; Z98.51 Tubal ligation status; Z68.31 Body mass index [BMI] 31.0-31.9, adult
CPT/HCPCS: 36415; 70551; 71045; 71046; 80048; 80053; 81001; 82607; 82728; 82746; 83021; 83540; 83550; 83615; 85025; 85045; 85660; 87040; 87081; 87426; 93970; 94640; 96361; 96374; 96375; G0378; J1756; J1956; J2405

== ENCOUNTER 2021-10-07 13:04 | Emergency (ER) | payer BC, MEDICAID ==
[~2021-10-07] VITALS: Ht 175.3 cm; Wt 81.6 kg
[~2021-10-07 13:04] MED LIST changes: +ALB5IS NEB; +FER325T PO; +IPR002IS NEB; +LEVO750T64 PO
[2021-10-07 14:13] VITALS: BP 129/75
[2021-10-07] MEDS ORDERED: AZIT500T66 PO (15:31)
[2021-10-07] MEDS ORDERED: LIDO2SOL23 PO (15:31)
== END 2021-10-07 15:40 | disposition home or self-care (01) ==
LOC: ER 13:04
DX: J03.90 Acute tonsillitis, unspecified (principal); J45.909 Unspecified asthma, uncomplicated; D64.9 Anemia, unspecified; Z20.822 Contact with and (suspected) exposure to COVID-19; Z90.710 Acquired absence of both cervix and uterus; Z79.899 Other long term (current) drug therapy; Z79.2 Long term (current) use of antibiotics; Z88.0 Allergy status to penicillin; Z88.5 Allergy status to narcotic agent
CPT/HCPCS: 36415; 87426

== ENCOUNTER 2021-12-04 15:42 | Emergency (ER) | payer BC, MEDICAID ==
[~2021-12-04] VITALS: Ht 175.3 cm; Wt 81.6 kg
[~2021-12-04 15:42] MED LIST changes: +AZIT500T66 PO; +LIDO2SOL23 PO
[2021-12-04] MEDS ORDERED: SODIUM CHLORIDE 0.9% 1,000 ML IV ONE ×2 (16:30)
[2021-12-04] MEDS ORDERED: MORPHINE SULFATE 4 MG/ML SYR/VIAL IV ONE (16:30)
[2021-12-04] MEDS ORDERED: ONDANSETRON HCL 4 MG/2 ML VIAL IV ONE (16:30)
[2021-12-04 17:40] LABS: Eosinophils # (auto) 0.1 10 ^3/uL (0-0.8); Lymphocytes # (auto) 1.8 10 ^3/uL (0.4-5.4); Mean Corpuscular Hemoglobin 22.2 pg (28.0-32.0); Monocytes # (auto) 0.3 10 ^3/uL (0-1.3); White Blood Cell 5.6 10^3/uL (4.4-10.8)
[2021-12-04 17:42] LABS: Basophils # (auto) 0.1 10 ^3/uL (0-0.2); Basophils % (auto) 0.9 % (0.0-2.0); Eosinophils % (auto) 1.1 % (0.0-7.0); Hematocrit 39.2 % (36.0-46.0); Hemoglobin 12.3 g/dL (12.2-16.2); Lymphocytes % (auto) 31.7 % (10.0-50.0); Mean Corpuscular Hgb Conc. 31.5 g/dL (32.0-36.0); Mean Corpuscular Volume 70.4 fL (80.0-100.0); Monocytes % (auto) 5.8 % (0.0-12.0); Neutrophils # (auto) 3.4 10 ^3/uL (1.6-8.6); Neutrophils % (auto) 60.5 % (37.0-80.0); Nucleated Red Blood Cells % 0.2 %; Red Blood Cells 5.56 10^6/uL (4.0-5.20); Red Cell Distribution Width 15.7 % (11.8-14.3)
[2021-12-04 17:54] LABS: Urine Bacteria NONE SEEN /hpf (None Seen); Urine Blood Negative /uL (Negative); Urine Budding Yeast OCCASIONAL /hpf (None Seen); Urine Mucus FEW (None Seen); Urine Specific Gravity 1.021 (1.001-1.035); Urine WBC 12 /hpf (0 - 5)
[2021-12-04 17:56] LABS: Albumin 4.2 g/dL (3.4-5.0); BUN/Creatinine Ratio 13.5; Calcium 9.2 mg/dL (8.5-10.1); Potassium 3.8 mmol/L (3.5-5.1)
[2021-12-04 17:59] LABS: Bilirubin, Total 0.4 mg/dL (0.2-1.0); Total Protein 8.5 g/dL (6.4-8.2)
[2021-12-04 19:00] VITALS: BP 132/75
== END 2021-12-04 19:05 | disposition home or self-care (01) ==
LOC: ER 15:42
DX: D57.1 Sickle-cell disease without crisis (principal); J45.909 Unspecified asthma, uncomplicated; Z98.51 Tubal ligation status; Z90.710 Acquired absence of both cervix and uterus
CPT/HCPCS: 36415; 71045; 80053; 81001; 85025; 85045; 96361; 96374; 99284; J2405; J7030

== ENCOUNTER 2022-02-14 07:22 | Emergency (ER) | payer BC, MEDICAID ==
[~2022-02-14] VITALS: Ht 175.3 cm; Wt 83.0 kg
[2022-02-14 09:09] LABS: Basophils % (manual) 0 (0.0-2.0); Blast Cells 0; Metamyelocytes % 0; Myelocytes % 0; Promyelocytes % 0; Reactive Lymphocytes 0
[2022-02-14 09:18] LABS: Basophils # (auto) 0 10 ^3/uL (0-0.2); Basophils % (auto) 0.3 % (0.0-2.0); Eosinophils # (auto) 0.1 10 ^3/uL (0-0.8); Eosinophils % (auto) 2.2 % (0.0-7.0); Hematocrit 38.2 % (36.0-46.0); Hemoglobin 11.8 g/dL (12.2-16.2); Lymphocytes # (auto) 1.4 10 ^3/uL (0.4-5.4); Lymphocytes % (auto) 27.4 % (10.0-50.0); Mean Corpuscular Hemoglobin 21.7 pg (28.0-32.0); Mean Corpuscular Hgb Conc. 30.9 g/dL (32.0-36.0); Mean Corpuscular Volume 70.1 fL (80.0-100.0); Monocytes # (auto) 0.5 10 ^3/uL (0-1.3); Monocytes % (auto) 9.6 % (0.0-12.0); Neutrophils % (auto) 60.5 % (37.0-80.0); Nucleated Red Blood Cells % 0.1 %; Red Blood Cells 5.44 10^6/uL (4.0-5.20); Red Cell Distribution Width 14.5 % (11.8-14.3); White Blood Cell 4.9 10^3/uL (4.4-10.8)
[2022-02-14 09:32] LABS: Albumin 3.6 g/dL (3.4-5.0); Calcium 9.1 mg/dL (8.5-10.1)
[2022-02-14 09:35] LABS: BUN/Creatinine Ratio 9.8; Bilirubin, Total 0.4 mg/dL (0.2-1.0)
[2022-02-14] MEDS ORDERED: SODIUM CHLORIDE 0.9% 1,000 ML IV ONE (10:45)
[2022-02-14] MEDS ORDERED: MORPHINE SULFATE 4 MG/ML SYR/VIAL IV ONE (10:45)
[2022-02-14 10:55] LABS: Band Neutrophils % (manual) 1; Eosinophils % (manual) 2 (0-7); Lymphocytes % (manual) 35 (10.0-50.0); Monocytes % (manual) 8 (0-12)
[2022-02-14] MEDS ORDERED: ONDANSETRON HCL 4 MG/2 ML VIAL IV ONE (11:00)
[2022-02-14 12:22] VITALS: BP 141/90
== END 2022-02-14 13:13 | disposition home or self-care (01) ==
LOC: ER 07:22
DX: D57.00 Hb-SS disease with crisis, unspecified (principal); J45.909 Unspecified asthma, uncomplicated; Z98.51 Tubal ligation status; Z90.710 Acquired absence of both cervix and uterus; Z88.0 Allergy status to penicillin; Z88.6 Allergy status to analgesic agent; Z20.822 Contact with and (suspected) exposure to COVID-19
CPT/HCPCS: 36415; 80053; 83690; 85025; 85045; 87426; 87804; 96361; 96374; 96375; 99284; J2270; J2405; J7030

== ENCOUNTER 2022-04-17 12:30 | Emergency (ER) | payer BC, MEDICAID ==
[~2022-04-17] VITALS: Ht 175.3 cm; Wt 77.0 kg
[2022-04-17] MEDS ORDERED: DOXY-332 PO (14:55)
[2022-04-17] MEDS ORDERED: PRED20TA2 PO (14:55)
[2022-04-17] MEDS ORDERED: methylPREDNISolone SOD SUCC 125 MG/2 ML VL IM ONE (15:00)
[2022-04-17] MEDS ORDERED: ALBUTEROL SULF 2.5 MG/0.5ML(0.5%) NEB SOLN NEB ONE (15:00)
[2022-04-17] MEDS ORDERED: cefTRIAXone SOD 1,000 MG VL IM ONE (15:00)
[2022-04-17] MEDS ORDERED: IPRATROPIUM BROM 0.5 MG/2.5ML INH SOL NEB ONE (15:00)
[2022-04-17 15:14] VITALS: BP 139/58
== END 2022-04-17 16:10 | disposition home or self-care (01) ==
LOC: ER 12:30
DX: J20.9 Acute bronchitis, unspecified (principal); R51.9 Headache, unspecified; Z20.822 Contact with and (suspected) exposure to COVID-19; Z90.710 Acquired absence of both cervix and uterus; Z98.51 Tubal ligation status
CPT/HCPCS: 36415; 71045; 87426; 94640; 96372; 99284; J0696; J2930; J7644

== ENCOUNTER 2022-08-30 09:59 | Emergency (ER) | payer BC, MEDICAID ==
[~2022-08-30] VITALS: Ht 175.3 cm; Wt 85.0 kg
[~2022-08-30 09:59] MED LIST changes: +DOXY-332 PO; +PRED20TA2 PO
[2022-08-30] MEDS ORDERED: SODIUM CHLORIDE 0.9% 1,000 ML IV ONE (10:15)
[2022-08-30] MEDS ORDERED: methylPREDNISolone SOD SUCC 125 MG/2 ML VL IV ONE (10:15)
[2022-08-30] MEDS ORDERED: IOHEXOL 350 MG/ML 100ML IJ ONE (10:23)
[2022-08-30 10:33] LABS: Basophils # (auto) 0 10 ^3/uL (0-0.2); Eosinophils # (auto) 0.1 10 ^3/uL (0-0.8); Mean Corpuscular Hemoglobin 21.2 pg (28.0-32.0); Monocytes # (auto) 0.4 10 ^3/uL (0-1.3); Neutrophils # (auto) 3.7 10 ^3/uL (1.6-8.6)
[2022-08-30 10:35] LABS: Basophils % (auto) 0.2 % (0.0-2.0); Eosinophils % (auto) 2.4 % (0.0-7.0); Hematocrit 43.1 % (36.0-46.0); Hemoglobin 13.1 g/dL (12.2-16.2); Lymphocytes # (auto) 1.8 10 ^3/uL (0.4-5.4); Lymphocytes % (auto) 29.8 % (10.0-50.0); Mean Corpuscular Hgb Conc. 30.3 g/dL (32.0-36.0); Mean Corpuscular Volume 70.1 fL (80.0-100.0); Monocytes % (auto) 7.1 % (0.0-12.0); Neutrophils % (auto) 60.5 % (37.0-80.0); Red Blood Cells 6.15 10^6/uL (4.0-5.20); White Blood Cell 6.2 10^3/uL (4.4-10.8)
[2022-08-30 10:57] LABS: Albumin 3.7 g/dL (3.4-5.0); Calcium 9.4 mg/dL (8.5-10.1); Magnesium 2.5 mg/dL (1.6-2.6); Potassium 4.2 mmol/L (3.5-5.1)
[2022-08-30 11:01] LABS: BUN/Creatinine Ratio 12.8; Bilirubin, Total 0.5 mg/dL (0.2-1.0)
[2022-08-30] MEDS ORDERED: ENOXAPARIN SOD 100 MG/1 ML SYRINGE SC ONE (11:45)
[2022-08-30] MEDS ORDERED: PRED20TA2 PO (13:59)
[2022-08-30] MEDS ORDERED: LEVO-28 PO (13:59)
[2022-08-30 14:46] VITALS: BP 129/76
== END 2022-08-30 14:47 | disposition home or self-care (01) ==
LOC: ER 09:59
DX: J45.909 Unspecified asthma, uncomplicated (principal); J20.9 Acute bronchitis, unspecified; Z86.2 Personal history of diseases of the blood and blood-forming organs and certain disorders involving the immune mechanism; Z90.710 Acquired absence of both cervix and uterus; Z79.2 Long term (current) use of antibiotics; Z79.899 Other long term (current) drug therapy; Z88.0 Allergy status to penicillin; Z88.5 Allergy status to narcotic agent; Z20.822 Contact with and (suspected) exposure to COVID-19
CPT/HCPCS: 36415; 71045; 71275; 80053; 83735; 84484; 85025; 85379; 87426; 87804; 93005; 96361; 96374; 96375; 99285; J1650; J2930; J7030; Q9967

== ENCOUNTER 2023-06-05 14:17 | Emergency (ER) | payer BC, MEDICAID ==
[~2023-06-05] VITALS: Ht 175.3 cm; Wt 77.1 kg
[~2023-06-05 14:17] MED LIST changes: -DOXY-332 PO; +DOXY-448 PO; +LEVO500T91 PO; +LEVO750T40 PO; -LEVO750T64 PO; -LIDO2SOL23 PO; +LIDO2SOL26 PO; +SERT-206 PO; -SERT50TA19 PO
[2023-06-05] MEDS ORDERED: MECLIZINE HCL 25 MG TAB PO ONE (16:00)
[2023-06-05] MEDS ORDERED: SODIUM CHLORIDE 0.9% 1,000 ML IV ONE (16:00)
[2023-06-05 16:07] LABS: Basophils # (auto) 0.1 10 ^3/uL (0-0.2); Basophils % (auto) 0.7 % (0.0-2.0); Eosinophils # (auto) 0.1 10 ^3/uL (0-0.8); Eosinophils % (auto) 1.8 % (0.0-7.0); Hemoglobin 12.6 g/dL (12.2-16.2); Lymphocytes # (auto) 2.4 10 ^3/uL (0.4-5.4); Lymphocytes % (auto) 32.8 % (10.0-50.0); Mean Corpuscular Hgb Conc. 30.7 g/dL (32.0-36.0); Mean Corpuscular Volume 71.6 fL (80.0-100.0); Monocytes # (auto) 0.6 10 ^3/uL (0-1.3); Monocytes % (auto) 8.7 % (0.0-12.0); Neutrophils # (auto) 4.1 10 ^3/uL (1.6-8.6); Nucleated Red Blood Cells % 0.3 %; Red Blood Cells 5.73 10^6/uL (4.0-5.20); Red Cell Distribution Width 15.1 % (11.8-14.3); White Blood Cell 7.3 10^3/uL (4.4-10.8)
[2023-06-05] MEDS ORDERED: MECL1TAB42 PO (16:10)
[2023-06-05 16:40] LABS: Alanine Aminotransferase 15 U/L (7-40); Albumin 4.6 g/dL (3.2-4.8); Alkaline Phosphatase 127 U/L (46-116); Anion Gap 9.3 (5-15); Aspartate Aminotransferase 15 U/L (13-40); BUN/Creatinine Ratio 13.8 (10.0-20.0); Blood Urea Nitrogen 13 mg/dL (9-23); Calcium 9.5 mg/dL (8.5-10.1); Carbon Dioxide 25.7 mmol/L (20-30); Chloride 107 mmol/L (98-107); Glucose 94 mg/dL (74-106); Potassium 3.8 mmol/L (3.5-5.1); Sodium 142 mmol/L (136-145)
[2023-06-05 16:41] LABS: Bilirubin, Total 0.5 mg/dL (0.2-1.0)
[2023-06-05 17:07] LABS: Platelet Estimate Decreased
[2023-06-05 17:08] LABS: Anisocytosis Slight; Hypochromia Moderate; Ovalocytes FEW
[2023-06-05 17:27] VITALS: BP 137/80; PULSE 87; RESP 18; TEMP 98.9; O2SAT 100
== END 2023-06-05 17:36 | disposition home or self-care (01) ==
LOC: ER 14:17
DX: R42 Dizziness and giddiness (principal); R11.0 Nausea; J45.909 Unspecified asthma, uncomplicated; Z98.51 Tubal ligation status; Z90.710 Acquired absence of both cervix and uterus
CPT/HCPCS: 36415; 70450; 80053; 82962; 84484; 85025; 93005; 96360; 99284; J7030; J8597

== ENCOUNTER 2023-08-13 12:35 | Emergency (ER) | payer MEDICAID, OTHER ==
[~2023-08-13] VITALS: Ht 175.3 cm; Wt 80.4 kg
[~2023-08-13 12:35] MED LIST changes: +MECL1TAB42 PO
[2023-08-13 13:18] VITALS: TEMP 97.6
[2023-08-13 13:29] LABS: Urine Bacteria NONE SEEN /hpf (None Seen); Urine Blood Negative /uL (Negative); Urine Clarity Clear (Clear); Urine Color Yellow (Yellow); Urine Protein, UAD Negative (Negative); Urine Specific Gravity 1.014 (1.001-1.035); Urine Urobilinogen Normal (Negative); Urine WBC 96 /hpf (0 - 5); Urine pH 7.5 (5.0-8.0)
[2023-08-13] MEDS ORDERED: IPRATROPIUM BROM 0.5 MG/2.5ML INH SOL NEB ONE ×4 (14:00→17:15)
[2023-08-13] MEDS ORDERED: DexAMETHasone SOD PHOS 10MG/1ML VIAL INJ PO ONE (14:00)
[2023-08-13] MEDS ORDERED: ACETAMINOPHEN 500 MG TAB PO ONE (14:00)
[2023-08-13] MEDS ORDERED: ALBUTEROL MEDNEB 2.5 mg/3ml NEB NEB ONE ×4 (14:00→17:15)
[2023-08-13] MEDS ORDERED: IPRATROPIUM BROM 0.5 MG/2.5ML INH SOL ONE (16:57)
[2023-08-13] MEDS ORDERED: ALBUTEROL MEDNEB 2.5 mg/3ml NEB ONE (16:57)
[2023-08-13] MEDS ORDERED: ALBUTEROL SULF 2.5 MG/0.5ML(0.5%) NEB SOLN NEB ONE (17:00)
[2023-08-13] MEDS ORDERED: METH4PAK PO (17:43)
[2023-08-13] MEDS ORDERED: ALBUAER3 IN (17:43)
[2023-08-13 17:45] VITALS: BP 117/65; PULSE 100; RESP 14; O2SAT 95
== END 2023-08-13 17:44 | disposition home or self-care (01) ==
LOC: ER 12:35
DX: J45.909 Unspecified asthma, uncomplicated (principal); R07.89 Other chest pain; Z90.710 Acquired absence of both cervix and uterus
CPT/HCPCS: 70360; 71046; 81001; 94640; 99285; J1100; J7644

== ENCOUNTER 2023-09-25 13:01 | Emergency (ER) | payer MEDICAID, OTHER ==
[~2023-09-25] VITALS: Ht 175.3 cm; Wt 80.4 kg
[~2023-09-25 13:01] MED LIST changes: +ALBUAER3 IN; +METH4PAK PO
[2023-09-25 15:19] LABS: Alanine Aminotransferase 12 U/L (7-40); Albumin 4.8 g/dL (3.2-4.8); Alkaline Phosphatase 146 U/L (46-116); Anion Gap 8 (5-15); Aspartate Aminotransferase 23 U/L (13-40); BUN/Creatinine Ratio 9.9 (10.0-20.0); Bilirubin, Total 0.6 mg/dL (0.2-1.0); Blood Urea Nitrogen 9 mg/dL (9-23); Calcium 9.6 mg/dL (8.7-10.4); Carbon Dioxide 25 mmol/L (20-30); Chloride 108 mmol/L (98-107); Glucose 71 mg/dL (74-106); Magnesium 2.2 mg/dL (1.6-2.6); Potassium 4.1 mmol/L (3.5-5.1); Sodium 141 mmol/L (136-145); Total Protein 8.4 g/dL (5.7-8.2)
[2023-09-25 15:34] LABS: INR 0.96 (0.9-1.15); Partial Thromboplastin Time 26.8 SEC (24.5-34.5); Prothrombin Time 10.3 sec (9.3-11.8)
[2023-09-25 15:38] LABS: Basophils # (auto) 0 10 ^3/uL (0-0.2); Basophils % (auto) 0.4 % (0.0-2.0); Eosinophils # (auto) 0.1 10 ^3/uL (0-0.8); Eosinophils % (auto) 1.8 % (0.0-7.0); Hematocrit 41.7 % (36.0-46.0); Hemoglobin 12.9 g/dL (12.2-16.2); Lymphocytes # (auto) 1.5 10 ^3/uL (0.4-5.4); Lymphocytes % (auto) 26.4 % (10.0-50.0); Mean Corpuscular Hemoglobin 21.6 pg (28.0-32.0); Mean Corpuscular Hgb Conc. 30.9 g/dL (32.0-36.0); Mean Corpuscular Volume 69.8 fL (80.0-100.0); Monocytes # (auto) 0.5 10 ^3/uL (0-1.3); Monocytes % (auto) 9.5 % (0.0-12.0); Neutrophils # (auto) 3.5 10 ^3/uL (1.6-8.6); Neutrophils % (auto) 61.9 % (37.0-80.0); Nucleated Red Blood Cells % 0.1 %; Red Blood Cells 5.97 10^6/uL (4.0-5.20); White Blood Cell 5.7 10^3/uL (4.4-10.8)
[2023-09-25 17:11] LABS: Anisocytosis Slight; Hypochromia Slight; Platelet Estimate Decreased
[2023-09-25] MEDS ORDERED: PROCHLORPERAZINE EDISYLATE 5 MG/ML 2ML VIAL IM ONE (18:15)
[2023-09-25] MEDS ORDERED: MECL1TAB42 PO (20:19)
[2023-09-25] MEDS ORDERED: PRED20TA2 PO (20:19)
[2023-09-25 20:25] VITALS: BP 117/67; PULSE 84; RESP 16; TEMP 97.9; O2SAT 100
== END 2023-09-25 20:29 | disposition home or self-care (01) ==
LOC: ER 13:01
DX: J45.909 Unspecified asthma, uncomplicated (principal); R42 Dizziness and giddiness; Z90.710 Acquired absence of both cervix and uterus; Z98.51 Tubal ligation status
CPT/HCPCS: 36415; 71045; 80053; 82962; 83735; 83880; 84484; 85025; 85610; 85730; 93005; 96372; 99285; J0780

== ENCOUNTER 2024-11-17 17:49 | Inpatient (IN) | payer OTHER, MEDICAID ==
[~2024-11-17] VITALS: Ht 175.3 cm; Wt 71.7 kg
[~2024-11-17 17:49] MED LIST changes: -DOXY-448 PO; +DOXY100C79 PO
--- NOTE | 2024-11-17 19:23 | DVH ---
EXAM: XR Chest, 1 View CLINICAL INDICATION: sob cp TECHNIQUE: Frontal view of the chest. COMPARISON: XY CHEST PORTABLE on DOS: 09/25/23, CHEST PORTABLE on DOS: 08/30/22, CHEST XRAY 1 VIEW on DOS: 04/17/22, CHEST PORTABLE on DOS: 12/04/21, CHEST XRAY 1 VIEW on DOS: 02/10/21 FINDINGS: LUNGS AND PLEURAL SPACES: Right basilar atelectasis or pneumonia. No pneumothorax. HEART: Unremarkable. No cardiomegaly. MEDIASTINUM: Unremarkable. Normal mediastinal contour. BONES/JOINTS: Unremarkable. No acute fracture. OTHER FINDINGS: . IMPRESSION: Right basilar atelectasis or pneumonia.
[2024-11-17 19:34] LABS: Basophils # (auto) 0 10 ^3/uL (0-0.2); Eosinophils # (auto) 0.2 10 ^3/uL (0-0.8); Mean Corpuscular Hemoglobin 21.7 pg (28.0-32.0); Mean Corpuscular Volume 71.5 fL (80.0-100.0); Neutrophils # (auto) 3.5 10 ^3/uL (1.6-8.6); Nucleated Red Blood Cells % 0.2 %
[2024-11-17 19:37] LABS: Basophils % (auto) 0.2 % (0.0-2.0); Eosinophils % (auto) 2.5 % (0.0-7.0); Hematocrit 40.5 % (36.0-46.0); Hemoglobin 12.3 g/dL (12.2-16.2); Lymphocytes # (auto) 2.1 10 ^3/uL (0.4-5.4); Lymphocytes % (auto) 33.5 % (10.0-50.0); Mean Corpuscular Hgb Conc. 30.4 g/dL (32.0-36.0); Monocytes # (auto) 0.6 10 ^3/uL (0-1.3); Monocytes % (auto) 9.3 % (0.0-12.0); Neutrophils % (auto) 54.5 % (37.0-80.0); Platelet Count (auto) 166 10^3/uL (140-450); Red Blood Cells 5.67 10^6/uL (4.0-5.20); Red Cell Distribution Width 14.8 % (11.8-14.3); White Blood Cell 6.3 10^3/uL (4.4-10.8)
--- NOTE | 2024-11-17 19:37 | ED.PDOC ---
HPI Comments 59-year-old female with history of sickle cell thalassemia and asthma brought in by family complaining of chest pain, shortness a breath, bilateral lower extremity aching and cramps, body aches characterized by stiff neck and low back pain, onset around 2:00 a.m. this morning. Patient states that she has oral morphine at home, but is uncomfortable taking it due to prior negative side effects of extreme somnolence and dizziness. She denies any fever, cough, sick contacts or wheezing, however does have dyspnea on mild exertion. She describes the chest pain as pressure-like, radiating from the retrosternal area to the left and right chest. In Chief Complaint: Chest Pain Time Seen by MD: 18:30 Primary Care Provider: NONE Reviewed Notes: Nurses Notes, Medications, Allergies Allergies: Coded Allergies: Codeine (Verified Allergy, Unknown, 04/17/22) Penicillins (Verified Allergy, Unknown, 04/17/22) Home Meds Active Scripts Prednisone (Prednisone) 20 Mg Tab, 20 MG PO DAILY for 5 Days, #5 MG Prov:BRITTANI CHANELP 09/25/23 Meclizine HCl (Meclizine 25) 25 Mg Tab, 50 MG PO TID PRN, #60 TAB Prov:BRITTANI CHANEL 09/25/23 Albuterol Sulfate (VENTOLIN MDI) 90 Mcg Ih, 90 MCG IN Q6HPRN PRN for 30 Days, #1 KIT 0 Refills Prov:PHAM SHAW NP 08/13/23 Methylprednisolone (Medrol Dosepak) 4 Mg Santiago, 4 MG PO UD, #21 TAB 0 Refills UAD Prov:PHAM SHAW NP 08/13/23 Meclizine HCl (Meclizine 25) 25 Mg Tab, 25 MG PO DAILY for 7 Days, #7 TAB Prov:ZION CARLIN MD 06/05/23 Levofloxacin Hemihydrate (LEVOFLOXACIN) 500 Mg Tab, 1 TAB PO DAILY for 7 Days, #7 TAB Prov:ZION CARLIN MD 08/30/22 Prednisone (Prednisone) 20 Mg Tab, 20 MG PO DAILY for 5 Days, #5 MG Prov:ZION CARLIN MD 08/30/22 Prednisone (Prednisone) 20 Mg Tab, 20 MG PO BID for 5 Days, #10 MG 0 Refills Prov:AMADA MARX 04/17/22 Doxycycline (Monohydrate) (Doxycycline) 100 Mg Cap, 100 MG PO BID for 7 Days, #14 CAP 0 Refills Prov:AMADA MARX 04/17/22 Lidocaine HCl (Mouth-Throat) (Lidocaine HCl Viscous) 2 % Jacque, 2 % PO TID for 7 Days, #100 ML Prov:EVAN MENDENHALL 10/07/21 Azithromycin (Azithromycin) 500 Mg Tab, 500 MG PO DAILY for 5 Days, #5 TAB Prov:EVAN MENDENHALL 10/07/21 Ipratropium [place] (Ipratropium [place]) 0.02 % Jacque, 0.5 MG NEB Q6HP PRN, #2 BOX Prov:ALLISON TURNER MD 02/11/21 Ferrous Sulfate (FERROUS SULFATE) 325 Mg Tb, 1 TAB PO DAILY, #60 TAB 0 Refills Prov:ALLISON TURNER MD 02/11/21 Levofloxacin Hemihydrate (LEVOFLOXACIN) 750 Mg Tab, 1 TAB PO DAILY, #5 TAB Prov:ALLISON TURNER MD 02/11/21 Albuterol Sulfate (Ventolin) 2.5 Mg/0.5 Ml Nb, 2.5 MG NEB Q6HP PRN, #2 BOX 0 Refills Prov:ALLISON TURNER MD 02/11/21 Reported Medications Cyclobenzaprine HCl (Cyclobenzaprine Hydrochlo) 10 Mg Tab, 1 TAB PO BIDPRN PRN for FOR MUSCLE SPASM 02/05/21 Sertraline Hcl (Sertraline Hcl) 50 Mg Tab, 1 TAB PO DAILYPRN 02/05/21 Information Source: Patient Mode of Arrival: Ambulatory Severity: Moderate Timing: Hours Duration: Since onset Prehospital treatment: None Past Medical History PAST MEDICAL HISTORY: Anemia, Asthma Past Medical History (Other): Sickle cell thalassemia Surgical History: BTL, Hysterectomy, Tubal Ligation Surgical History (Other): gastric bypass, left-arm surgery, liposuction SENIOR BEHAVIORAL SCIENTIST History: No Pertinent SENIOR BEHAVIORAL SCIENTIST History Family History Family History: Reviewed,noncontributory to illness, Family hx of DM, Family hx of Cancer, Family hx of heart silverio Social History Smoker: Non-Smoker Alcohol: Denies ETOH Use Drugs: Denies Drug Use Lives In: Home All Other Systems: Reviewed and Negative (Comprehensive systems review obtained and negative except for what is stated in the HPI.) Physical Exam General Appearance: No Apparent Distress HEENT: Other (Pupils and face symmetric. Moist mucous membranes) Neck: Full Range of Motion, Normal Inspection Respiratory: Lungs Clear, No Accessory Muscle Use, No Respiratory Distress, Normal Breath Sounds Cardiovascular: No Edema, No JVD, Regular Rate/Rhythm Breast Exam: Deferred Gastrointestinal: Non Tender, Soft Genitalia: Deferred Pelvic: Deferred Rectal: Deferred Extremities: Normal inspection, Normal range of motion, Non-tender, No pedal edema Neurologic: Alert (Oriented x4), Normal Affect, Normal Mood, Other (Ambulatory without difficulty. No gross focal deficit.) Cerebellar Function: NOT DONE Reflexes: NOT DONE Skin: Dry, Normal Color, Warm Lymphatic: NOT DONE EKG EKG : Comments Sinus rhythm, rate 81, normal intervals, normal axis, normal QRS, no ST/T changes. Was a procedure done? Was a procedure done?: No CP Differential Dx Differential Diagnosis: Angina, Anxiety / Panic Attack, Heart Failure, PA Other Differential Diagnosis Asthma/COPD exacerbation, acute chest syndrome, sickle cell crisis, severe anemia, among others Differential Diagnosis: CHF Differential Diagnosis: Angina, Chest Wall Pain, Cholelithiasis, C ostochondritis, Esophageal reflux/spasm, Gastritis, Myocardial Infarction, Pericarditis, Pneumonia X-Ray, Labs, Meds, VS Vital Signs Date Time Temp Pulse Resp B/P (MAP) Pulse Ox O2 Delivery O2 Flow Rate FiO2 11/17/24 21:25 65 20 100 Room Air* 0 21 11/17/24 21:22 98.0 65 20 117/71 (86) 100 98.0 11/17/24 17:56 81 11/17/24 17:49 98.5 83 16 124/75 (91) 100 Lab Test 11/17/24 19:12 Range/Units White Blood Count 6.3 4.4-10.8 10^3/uL Red Blood Count 5.67 H 4.0-5.20 10^6/uL Hemoglobin 12.3 12.2-16.2 g/dL Hematocrit 40.5 36.0-46.0 % Mean Corpuscular Volume 71.5 L 80.0-100.0 fL Mean Corpuscular Hemoglobin 21.7 L 28.0-32.0 pg Mean Corpuscular Hemoglobin Concent 30.4 L 32.0-36.0 g/dL Red Cell Distribution Width 14.8 H 11.8-14.3 % Platelet Count 166 140-450 10^3/uL Mean Platelet Volume 10.8 6.9-10.8 fL Neutrophils (%) (Auto) 54.5 37.0-80.0 % Lymphocytes (%) (Auto) 33.5 10.0-50.0 % Monocytes (%) (Auto) 9.3 0.0-12.0 % Eosinophils (%) (Auto) 2.5 0.0-7.0 % Basophils (%) (Auto) 0.2 0.0-2.0 % Neutrophils # (Auto) 3.5 1.6-8.6 10 ^3/uL Lymphocytes # (Auto) 2.1 0.4-5.4 10 ^3/uL Monocytes # (Auto) 0.6 0-1.3 10 ^3/uL Eosinophils # (Auto) 0.2 0-0.8 10 ^3/uL Basophils # (Auto) 0 0-0.2 10 ^3/uL Nucleated Red Blood Cells 0.2 % Reticulocyte Count (auto) Pending Sodium Level 141 136-145 mmol/L Potassium Level 3.8 3.5-5.1 mmol/L Chloride Level 107 98-107 mmol/L Carbon Dioxide Level 23 20-31 mmol/L Anion Gap 11 5-15 Blood Urea Nitrogen 10 9-23 mg/dL Creatinine 0.93 0.550-1.02 mg/dL Glomerular Filtration Rate Calc 70 >90 mL/min BUN/Creatinine Ratio 10.8 10.0-20.0 Serum Glucose 74 74-106 mg/dL Calcium Level 9.9 8.7-10.4 mg/dL Total Bilirubin 0.4 0.2-1.0 mg/dL Aspartate Amino Transferase (AST) 19 13-40 U/L Alanine Aminotransferase (ALT) 22 7-40 U/L Alkaline Phosphatase 132 H 46-116 U/L Creatine Kinase Pending Troponin I High Sensitivity < 3 L </=34 ng/L B-Type Natriuretic Peptide Pending Total Protein 7.8 5.7-8.2 g/dL Albumin 4.6 3.2-4.8 g/dL [facility] [id number] [facility] [address] Ph: [phone] DIAGNOSTIC IMAGING Diagnostic Imaging Report : [id number] Signed PATIENT: FRITZ NIELSEN ACCT: [id number] UNIT: [id number] : 1965 LOC: ER ROOM / BED: / AGE / SEX: 59 / F ADM STATUS: REG ER SERVICE 36 ORDERING PHYSICIAN: JOANA BOLTON MD PROCEDURE(s): CXR1 - CHEST XRAY 1 VIEW REASON: sob cp ORDER NUMBER(s): [id number], ACCESSION NUMBER(s): [id number] EXAM: XR Chest, 1 View CLINICAL INDICATION: sob cp TECHNIQUE: Frontal view of the chest. COMPARISON: XY CHEST PORTABLE on DOS: 09/25/23, CHEST PORTABLE on DOS: 08/30/22, CHEST XRAY 1 VIEW on DOS: 04/17/22, CHEST PORTABLE on DOS: 12/04/21, CHEST XRAY 1 VIEW on DOS: 02/10/21 FINDINGS: LUNGS AND PLEURAL SPACES: Right basilar atelectasis or pneumonia. No pneumothorax. HEART: Unremarkable. No cardiomegaly. MEDIASTINUM: Unremarkable. Normal mediastinal contour. BONES/JOINTS: Unremarkable. No acute fracture. OTHER FINDINGS: . IMPRESSION: Right basilar atelectasis or pneumonia. ATED BY: MICHAEL RAE MD DICTATED DATE/TIME: 11/17/241920 SIGNED BY: MICHAEL RAE MD SIGNED DATE/TIME: 11/17/241920 CC: X-Ray, Labs, Meds, VS Comment 59-year-old female with a history of asthma and sickle cell thalassemia complaining of chest pain, shortness of breath and body aches Vitals unremarkable Exam unremarkable Rhythm strip independently interpreted by me: Sinus rhythm, rate 81, no ectopy. Chest x-ray IMPRESSION: Right basilar atelectasis or pneumonia. CBC remarkable for hemoglobin 12.3, hematocrit 40.5, metabolic panel remarkable for alkaline phos 132, troponin negative Retic count, lactate, influenza and COVID pending Patient treated with the following in the ED: Albuterol 5 mg/Atrovent 0.5 mg nebulized, Solu-Medrol 125 mg IV, doxycycline 100 mg IV, morphine 4 mg IV, Zofran 4 mg IV, Ativan 0.5 mg p.o. On re-evaluation, patient states pain has improved and she is not short of breath at rest. Patient is saturating normally on room air. Plan is to admit the patient for ongoing serial troponins, pain control, respiratory support as needed and IV antibiotics for possible pneumonia. Time of 1ST Reevaluation: 19:00 Reevaluation 1ST: Unchanged Patient Education/Counseling: Diagnosis, Treatment Family Education/Counseling: No Family Present Additional Information -Reviewed patient's previous visit(s): 09/25/23, 02/14/22 - The following tests were ordered, and results were reviewed by me: blood culture, lactic acid, creatine kinase, CXR, reticulocyte count, BNP, EKG, troponin, CMP, CBC - I reviewed and agreed with the following test results read by other provider: CXR - I discussed treatments and results with medical personnel and: patient Departure 1 Departure Time of Disposition: 21:46 Impression: Primary Impression: Pneumonia Qualified Codes: J18.9 - Pneumonia, unspecified organism Additional Impressions: Asthma exacerbation Qualified Codes: J45.901 - Unspecified asthma with (acute) exacerbation Myalgia Disposition: ADMITTED INPATIENT Admit to: Med Surg Condition: Guarded Critical Care Note Critical Care Time?: No Stability Stability form required: No Heart Score Heart Score: Heart Score Response (Comments) Value History Moderate Suspicious 1 EKG Normal 0 Age 45-64 1 Risk Factors No known risk factors 0 Troponin Normal limit 0 Total 2 I personally scribed for JOANA BOLTON MD ([email or web address]) on 11/17/24 at 19:37. Electronically submitted by Jesu Thrasher ([email or web address]). JOANA BOLTON MD Nov 17, 2024 19:37
[2024-11-17 19:59] LABS: Alanine Aminotransferase 22 U/L (7-40); Albumin 4.6 g/dL (3.2-4.8); Alkaline Phosphatase 132 U/L (46-116); Anion Gap 11 (5-15); Aspartate Aminotransferase 19 U/L (13-40); BUN/Creatinine Ratio 10.8 (10.0-20.0); Bilirubin, Total 0.4 mg/dL (0.2-1.0); Blood Urea Nitrogen 10 mg/dL (9-23); Calcium 9.9 mg/dL (8.7-10.4); Carbon Dioxide 23 mmol/L (20-31); Chloride 107 mmol/L (98-107); Glucose 74 mg/dL (74-106); Potassium 3.8 mmol/L (3.5-5.1); Sodium 141 mmol/L (136-145); Total Protein 7.8 g/dL (5.7-8.2)
[2024-11-17 21:25] VITALS: PULSE 65; RESP 20; O2SAT 100
[2024-11-17] MEDS: SODIUM CHLORIDE 0.9% 2,000 ML IV ONE (21:31)
[2024-11-17] MEDS: LORazepam 0.5 MG TAB PO ONE (21:31)
[2024-11-17] MEDS: MORPHINE SULFATE 4 MG/ML SYR/VIAL IV ONE (21:32)
[2024-11-17] MEDS: ONDANSETRON HCL 4 MG/2 ML VIAL IV ONE (21:32)
[2024-11-17] MEDS: IPRATROPIUM BROM 0.5 MG/2.5ML INH SOL NEB ONE (21:35)
[2024-11-17] MEDS: ALBUTEROL SULF 2.5 MG/0.5ML(0.5%) NEB SOLN NEB ONE (21:35)
--- NOTE | 2024-11-17 21:56 | DVHHP2 ---
Admitting Diagnosis: chest pain and SOB History of Present Illness Patient is a 59-year-old female with a history of sickle cell thalassemia and asthma brought in by family complaining of chest pain, shortness of breath and bilateral lower extremity aching and cramps. Patient is also experiencing bodyaches characterized by stiff neck and lower back pain. Patient denies any fever, cough, sick contacts or wheezing. Patient does state that she has dyspnea on mild exertion. Patient also states that chest pain is "pressure- like". While in the emergency department the patient was evaluated by the provider, As per provider: Labs, vital signs, and imagining monitored. Patient will be admitted for further evaluation and treatment. I discussed admission with the patient/family and is in agreement to treatment plan Allergies: Coded Allergies: Codeine (Verified Allergy, Unknown, 04/17/22) Penicillins (Verified Allergy, Unknown, 04/17/22) Home Meds Active Scripts Prednisone (Prednisone) 20 Mg Tab, 20 MG PO DAILY for 5 Days, #5 MG Prov:BRITTANI CHANELP 09/25/23 Meclizine HCl (Meclizine 25) 25 Mg Tab, 50 MG PO TID PRN, #60 TAB Prov:BRITTANI CHANEL 09/25/23 Albuterol Sulfate (VENTOLIN MDI) 90 Mcg Ih, 90 MCG IN Q6HPRN PRN for 30 Days, #1 KIT 0 Refills Prov:PHAM SHAW NP 08/13/23 Methylprednisolone (Medrol Dosepak) 4 Mg Santiago, 4 MG PO UD, #21 TAB 0 Refills UAD Prov:PHAM SHAW NP 08/13/23 Meclizine HCl (Meclizine 25) 25 Mg Tab, 25 MG PO DAILY for 7 Days, #7 TAB Prov:ZION CARLIN MD 06/05/23 Levofloxacin Hemihydrate (LEVOFLOXACIN) 500 Mg Tab, 1 TAB PO DAILY for 7 Days, #7 TAB Prov:ZION CARLIN MD 08/30/22 Prednisone (Prednisone) 20 Mg Tab, 20 MG PO DAILY for 5 Days, #5 MG Prov:ZION CARLIN MD 08/30/22 Prednisone (Prednisone) 20 Mg Tab, 20 MG PO BID for 5 Days, #10 MG 0 Refills Prov:AMADA MARX 04/17/22 Doxycycline (Monohydrate) (Doxycycline) 100 Mg Cap, 100 MG PO BID for 7 Days, #14 CAP 0 Refills Prov:AMADA MARX 04/17/22 Lidocaine HCl (Mouth-Throat) (Lidocaine HCl Viscous) 2 % Jacque, 2 % PO TID for 7 Days, #100 ML Prov:EVAN MENDENHALL 10/07/21 Azithromycin (Azithromycin) 500 Mg Tab, 500 MG PO DAILY for 5 Days, #5 TAB Prov:EVAN MENDENHALL 10/07/21 Ipratropium [place] (Ipratropium [place]) 0.02 % Jacque, 0.5 MG NEB Q6HP PRN, #2 BOX Prov:ALLISON TURNER MD 02/11/21 Ferrous Sulfate (FERROUS SULFATE) 325 Mg Tb, 1 TAB PO DAILY, #60 TAB 0 Refills Prov:ALLISON TURNER MD 02/11/21 Levofloxacin Hemihydrate (LEVOFLOXACIN) 750 Mg Tab, 1 TAB PO DAILY, #5 TAB Prov:ALLISON TURNER MD 02/11/21 Albuterol Sulfate (Ventolin) 2.5 Mg/0.5 Ml Nb, 2.5 MG NEB Q6HP PRN, #2 BOX 0 Refills Prov:ALLISON TURNER MD 02/11/21 Reported Medications Cyclobenzaprine HCl (Cyclobenzaprine Hydrochlo) 10 Mg Tab, 1 TAB PO BIDPRN PRN for FOR MUSCLE SPASM 02/05/21 Sertraline Hcl (Sertraline Hcl) 50 Mg Tab, 1 TAB PO DAILYPRN 02/05/21 Current Medications Current Medications Medications (Trade) Dose Ordered Sig/Genesis Route PRN Reason Start Time Stop Time Status Last Admin Sodium Chloride 1,000 ml @ 120 mls/hr Q8H20M IV 11/17/24 22:00 11/18/24 03:31 Acetaminophen/ Hydrocodone Bitart ([place] 5/325MG Tab) 1 tab Q4HP PRN PO MODERATE PAIN (4-6 PAIN SCALE) 11/17/24 22:00 Temazepam (Restoril) 15 mg QHSP PRN PO FOR INSOMNIA 11/17/24 22:00 Ondansetron HCl (Zofran) 4 mg Q4HP PRN IV NAUSEA / VOMITING 11/17/24 22:00 11/18/24 13:16 Docusate Sodium (Colace Capsule) 100 mg BIDPRN PRN PO FOR CONSTIPATION 11/17/24 22:00 Enoxaparin Sodium (Lovenox) 40 mg DAILY SC 11/18/24 10:00 11/18/24 12:20 Acetaminophen (Tylenol Tablet) 650 mg Q6HP PRN PO PAIN SCALE 1-3 OR TEMP>100.4 11/17/24 22:00 11/18/24 16:13 Nitroglycerin (Ntrostat Sublingual) 0.4 mg Q5MINP PRN SL FOR CHEST PAIN 11/17/24 22:00 Folic Acid 1 mg DAILY PO 11/18/24 10:00 11/18/24 09:22 Pantoprazole Sodium (Protonix Tablet) 40 mg DAILY PO 11/18/24 10:00 11/18/24 09:21 Hydromorphone HCl (Dilaudid Injection) 1 mg Q4HP PRN IV PAIN SCALE 7 THRU 10 11/17/24 22:00 11/18/24 09:23 Cyclobenzaprine HCl (Flexeril Tablet) 10 mg BIDPRN PRN PO FOR MUSCLE SPASM 11/18/24 16:45 Sertraline HCl (Zoloft) 50 mg HS PO 11/18/24 22:00 Review of Systems Constitutional: denies chills, denies fever, denies malaise Eyes: denies eye pain, denies vision change ENT: denies ear pain, denies headache, denies nasal congestion, denies painful swallowing, denies voice change Cardiovascular: denies chest pain, denies edema, denies orthopnea, denies palpitations, denies paroxysmal nocturnal dyspnea Respiratory: denies cough, denies shortness of breath Gastrointestinal: denies constipation, denies diarrhea, denies nausea, denies vomiting Genitourinary: denies dysuria, denies frequent urination, denies urethral discharge Musculoskeletal: back pain, denies joint pain, denies muscle pain Skin: denies bruising, denies itching, denies rash Neurological: denies focal weakness, denies headache, denies sensory changes Psychiatric: denies anxiety, denies depression Endocrine: denies polydipsia, denies polyuria Hematologic/Lymphatic: denies easy bleeding, denies easy bruising, denies enlarged lymph nodes Allergic/Immunologic: denies allergy, denies hives Vital Signs Vital Signs Date Time Temp Pulse Resp B/P (MAP) Pulse Ox O2 Delivery O2 Flow Rate FiO2 11/18/24 17:00 97.8 67 16 131/77 (95) 95 97.8 11/17/24 23:37 Room Air* 0 21 Physical Exam General Appearance: alert, no distress HEENT: EOMI, PERRLA, normal external inspect of ears, no icterus, no nasal drainage Neck: no carotid bruit, no jugular venous distention (JVD), no lymphadenopathy Chest: normal thorax Respiratory: clear to auscultation, normal air movement Cardiovascular: regular rate and rhythm, no diastolic murmur, no jugular venous distention (JVD), no rub, no systolic murmur Abdominal: soft, no hepatomegaly, no mass, no splenomegaly, no tenderness Genitourinary: grossly normal external Musculoskeletal: no joint tenderness, no swelling Extremities: normal pulses, no calf tenderness, no clubbing, no cyanosis, no edema Skin: no bruising, no jaundice, no rash Neurological: alert, No focal deficit Results Labs Test 11/18/24 04:31 11/17/24 22:17 11/17/24 22:00 11/17/24 19:12 Range/Units White Blood Count 3.6 #L 4.4-10.8 10^3/uL Red Blood Count 5.51 H 4.0-5.20 10^6/uL Hemoglobin 12.1 L 12.2-16.2 g/dL Hematocrit 39.6 36.0-46.0 % Mean Corpuscular Volume 71.8 L 80.0-100.0 fL Mean Corpuscular Hemoglobin 21.9 L 28.0-32.0 pg Mean Corpuscular Hemoglobin Concent 30.6 L 32.0-36.0 g/dL Red Cell Distribution Width 15.1 H 11.8-14.3 % Platelet Count 120 L 140-450 10^3/uL Mean Platelet Volume 11.9 H 6.9-10.8 fL Neutrophils (%) (Auto) 88.6 H 37.0-80.0 % Lymphocytes (%) (Auto) 9.7 L 10.0-50.0 % Monocytes (%) (Auto) 1.7 0.0-12.0 % Eosinophils (%) (Auto) 0.0 0.0-7.0 % Basophils (%) (Auto) 0.0 0.0-2.0 % Neutrophils # (Auto) 3.1 1.6-8.6 10 ^3/uL Lymphocytes # (Auto) 0.3 L 0.4-5.4 10 ^3/uL Monocytes # (Auto) 0.1 0-1.3 10 ^3/uL Eosinophils # (Auto) 0 0-0.8 10 ^3/uL Basophils # (Auto) 0 0-0.2 10 ^3/uL Nucleated Red Blood Cells 0.1 % Sodium Level 140 136-145 mmol/L Potassium Level 4.0 3.5-5.1 mmol/L Chloride Level 107 98-107 mmol/L Carbon Dioxide Level 23 20-31 mmol/L Anion Gap 10 5-15 Blood Urea Nitrogen 9 9-23 mg/dL Creatinine 0.86 0.550-1.02 mg/dL Glomerular Filtration Rate Calc 77 >90 mL/min BUN/Creatinine Ratio 10.5 10.0-20.0 Serum Glucose 189 H 74-106 mg/dL Calcium Level 9.8 8.7-10.4 mg/dL Total Bilirubin 0.3 0.2-1.0 mg/dL Aspartate Amino Transferase (AST) 19 13-40 U/L Alanine Aminotransferase (ALT) 15 7-40 U/L Alkaline Phosphatase 125 H 46-116 U/L Total Protein 7.9 5.7-8.2 g/dL Albumin 4.8 3.2-4.8 g/dL Thyroid Stimulating Hormone (TSH) 0.45 L 0.55-4.78 uIU/mL Reticulocyte Count (auto) 0.77 0.5-1.5 % Lactic Acid Level 1.9 0.4-2.0 mmol/L Troponin I High Sensitivity < 3 L </=34 ng/L B-Type Natriuretic Peptide 25.83 0-100 pg/mL Influenza Type A Antigen Negative Negative Influenza Type B Antigen Negative Negative SARS-CoV-2 Antigen (Rapid) Negative NEGATIVE Creatine Kinase 59 34-145 U/L Admitting Diagnosis: 1. Sickle cell crisis Medication, monitoring, hematology consult 2. Chest pain Pain control, DVT prophylaxis Plan discussed with: Patient, Other YUNIOR CEJA NP Nov 17, 2024 21:56
[2024-11-17] MEDS ORDERED: HYDROcodone-ACET 5/325MG TAB PO PRN (22:00)
[2024-11-17] MEDS ORDERED: NITROGLYCERIN 0.4 MG SL TAB SL PRN (22:00)
[2024-11-17] MEDS: methylPREDNISolone SOD SUCC 125 MG/2 ML VL IV ONE (22:00)
[2024-11-17] MEDS ORDERED: DOCUSATE SOD 100 MG CAP PO PRN (22:00)
[2024-11-17] MEDS ORDERED: TEMAZEPAM 15 MG CAP PO PRN (22:00)
[2024-11-17] MEDS: DOXYCYCLINE 100MG/100ML 100 ML IV ONE (22:02)
[2024-11-17 22:55] LABS: Rapid Influenza A Negative (Negative); Rapid Influenza B Negative (Negative)
[2024-11-17 22:56] LABS: COVID19 ANTIGEN SOFIA FIA NEGATIVE (NEGATIVE)
[2024-11-17] MEDS: SODIUM CHLORIDE 0.9% 1,000 ML IV SCH (23:10)
[2024-11-17 23:37] VITALS: O2SAT 96
[2024-11-18] MEDS: HYDROmorphone HCL 2 MG/ML VL/or syr IV PRN (00:27)
[2024-11-18 05:22] LABS: Basophils # (auto) 0 10 ^3/uL (0-0.2); Eosinophils # (auto) 0 10 ^3/uL (0-0.8); Monocytes # (auto) 0.1 10 ^3/uL (0-1.3); Nucleated Red Blood Cells % 0.1 %; White Blood Cell 3.6 10^3/uL (4.4-10.8)
[2024-11-18 05:24] LABS: Hematocrit 39.6 % (36.0-46.0); Hemoglobin 12.1 g/dL (12.2-16.2); Lymphocytes # (auto) 0.3 10 ^3/uL (0.4-5.4); Lymphocytes % (auto) 9.7 % (10.0-50.0); Mean Corpuscular Hemoglobin 21.9 pg (28.0-32.0); Mean Corpuscular Hgb Conc. 30.6 g/dL (32.0-36.0); Mean Corpuscular Volume 71.8 fL (80.0-100.0); Monocytes % (auto) 1.7 % (0.0-12.0); Neutrophils # (auto) 3.1 10 ^3/uL (1.6-8.6); Neutrophils % (auto) 88.6 % (37.0-80.0); Platelet Count (auto) 120 10^3/uL (140-450); Red Blood Cells 5.51 10^6/uL (4.0-5.20); Red Cell Distribution Width 15.1 % (11.8-14.3)
[2024-11-18 05:59] LABS: Alanine Aminotransferase 15 U/L (7-40); Albumin 4.8 g/dL (3.2-4.8); Anion Gap 10 (5-15); Aspartate Aminotransferase 19 U/L (13-40); BUN/Creatinine Ratio 10.5 (10.0-20.0); Blood Urea Nitrogen 9 mg/dL (9-23); Calcium 9.8 mg/dL (8.7-10.4); Carbon Dioxide 23 mmol/L (20-31); Sodium 140 mmol/L (136-145)
[2024-11-18 06:00] LABS: Bilirubin, Total 0.3 mg/dL (0.2-1.0); Total Protein 7.9 g/dL (5.7-8.2)
[2024-11-18 06:42] LABS: Alkaline Phosphatase 125 U/L (46-116); Chloride 107 mmol/L (98-107); Glucose 189 mg/dL (74-106)
--- NOTE | 2024-11-18 07:02 | DVHINCON2 ---
Date of service: Nov 18, 2024 History of Present Illness HPI Patient is a 59-year-old female who presented with 1 day of bilateral chest pain/shortness of breath/neck pain/headache/back pain/leg pains. Patient does have history of sickle cell disease. She mentions that the presentation is compatible to her sickle cell crises. Mentions that the last time she visited office equipment technician was a couple of years ago in [place]. She mentions that she has had stress test in [place] and was told it was normal (2 to 3 years ago). Cardiology is involved for cardiac aspects of care. Denies exertional component to the discomforts. Denies smoking/substance abuse. Home Meds Active Scripts Prednisone (Prednisone) 20 Mg Tab, 20 MG PO DAILY for 5 Days, #5 MG Prov:BRITTANI CHANEL BUSINESS PROCESS MANAGER 09/25/23 Meclizine HCl (Meclizine 25) 25 Mg Tab, 50 MG PO TID PRN, #60 TAB Prov:BRITTANI CHANEL 09/25/23 Albuterol Sulfate (VENTOLIN MDI) 90 Mcg Ih, 90 MCG IN Q6HPRN PRN for 30 Days, #1 KIT 0 Refills Prov:PHAM SHAW ABSORPTION PLANT OPERATOR 08/13/23 Methylprednisolone (Medrol Dosepak) 4 Mg Santiago, 4 MG PO UD, #21 TAB 0 Refills UAD Prov:PHAM SHAW ABSORPTION PLANT OPERATOR 08/13/23 Meclizine HCl (Meclizine 25) 25 Mg Tab, 25 MG PO DAILY for 7 Days, #7 TAB Prov:ZION CARLIN MD 06/05/23 Levofloxacin Hemihydrate (LEVOFLOXACIN) 500 Mg Tab, 1 TAB PO DAILY for 7 Days, #7 TAB Prov:ZION CARLIN MD 08/30/22 Prednisone (Prednisone) 20 Mg Tab, 20 MG PO DAILY for 5 Days, #5 MG Prov:ZION CARLIN MD 08/30/22 Prednisone (Prednisone) 20 Mg Tab, 20 MG PO BID for 5 Days, #10 MG 0 Refills Prov:AMADA MARX 04/17/22 Doxycycline (Monohydrate) (Doxycycline) 100 Mg Cap, 100 MG PO BID for 7 Days, #14 CAP 0 Refills Prov:AMADA MARX 04/17/22 Lidocaine HCl (Mouth-Throat) (Lidocaine HCl Viscous) 2 % Jacque, 2 % PO TID for 7 Days, #100 ML Prov:EVAN MENDENHALL 10/07/21 Azithromycin (Azithromycin) 500 Mg Tab, 500 MG PO DAILY for 5 Days, #5 TAB Prov:EVAN MENDENHALL 10/07/21 Ipratropium [place] (Ipratropium [place]) 0.02 % Jacque, 0.5 MG NEB Q6HP PRN, #2 BOX Prov:ALLISON TURNER MD 02/11/21 Ferrous Sulfate (FERROUS SULFATE) 325 Mg Tb, 1 TAB PO DAILY, #60 TAB 0 Refills Prov:ALLISON TURNER MD 02/11/21 Levofloxacin Hemihydrate (LEVOFLOXACIN) 750 Mg Tab, 1 TAB PO DAILY, #5 TAB Prov:ALLISON TURNER MD 02/11/21 Albuterol Sulfate (Ventolin) 2.5 Mg/0.5 Ml Nb, 2.5 MG NEB Q6HP PRN, #2 BOX 0 Refills Prov:ALLISON TURNER MD 02/11/21 Reported Medications Cyclobenzaprine HCl (Cyclobenzaprine Hydrochlo) 10 Mg Tab, 1 TAB PO BIDPRN PRN for FOR MUSCLE SPASM 02/05/21 Sertraline Hcl (Sertraline Hcl) 50 Mg Tab, 1 TAB PO DAILYPRN 02/05/21 Past Medical History Others Past medical history includes sickle cell disease, asthma, anemia, history of hysterectomy/tubal ligation/gastric bypass and liposuction. Patient Family History: FH: diabetes mellitus G8 MOTHER G8 FATHER FH: hypertension G8 MOTHER G8 FATHER Smoker: No Hx (Negative) Alocohol: None Drugs: None Review of Systems Constitutional: Malaise Ears, Nose, & Throat: No symptom reported Pulmonary/Respiratory: Pleuritic Chest Pain Cardiovascular: Chest Pain Musculoskeletal: Neck pain All Other Systems Fourteen point review of system was performed. Relevant findings as per above and as per HPI. Otherwise negative H&P Exam Vital Signs Vital Signs Date Time Temp Pulse Resp B/P (MAP) Pulse Ox O2 Delivery O2 Flow Rate FiO2 11/18/24 04:00 72 19 119/64 (82) 95 11/18/24 00:21 97.4 97.4 11/17/24 21:35 Room Air* 0 21 General Appeara: Well developed Head Exam: Normal inspection Neck Exam: Normal inspection Eye Exam: bilateral eye PERRL Mouth: Normal Inspection Pulmonary/Respiratory: Lungs clear Cardiovascular/Chest: Normal inspection, Regular rate Peripheral Pulses: 2+ carotid (R), 2+ carotid (L), 2+ femoral (R), 2+ femoral (L), 2+ dorsalis pedis (R), 2+ dorsalis pedis (L), 2+ Radial (R), 2+ Radial (L) Abdominal Exam: Normal bowel sounds, Soft Neuro/Mental St: Alert, Oriented Appearance: Appropriate appearance Eye contact/ Speech: Cooperative Labs/Xrays Labs Test 11/18/24 04:31 11/17/24 22:17 11/17/24 22:00 11/17/24 19:12 Range/Units White Blood Count 3.6 #L 4.4-10.8 10^3/uL Red Blood Count 5.51 H 4.0-5.20 10^6/uL Hemoglobin 12.1 L 12.2-16.2 g/dL Hematocrit 39.6 36.0-46.0 % Mean Corpuscular Volume 71.8 L 80.0-100.0 fL Mean Corpuscular Hemoglobin 21.9 L 28.0-32.0 pg Mean Corpuscular Hemoglobin Concent 30.6 L 32.0-36.0 g/dL Red Cell Distribution Width 15.1 H 11.8-14.3 % Platelet Count 120 L 140-450 10^3/uL Mean Platelet Volume 11.9 H 6.9-10.8 fL Neutrophils (%) (Auto) 88.6 H 37.0-80.0 % Lymphocytes (%) (Auto) 9.7 L 10.0-50.0 % Monocytes (%) (Auto) 1.7 0.0-12.0 % Eosinophils (%) (Auto) 0.0 0.0-7.0 % Basophils (%) (Auto) 0.0 0.0-2.0 % Neutrophils # (Auto) 3.1 1.6-8.6 10 ^3/uL Lymphocytes # (Auto) 0.3 L 0.4-5.4 10 ^3/uL Monocytes # (Auto) 0.1 0-1.3 10 ^3/uL Eosinophils # (Auto) 0 0-0.8 10 ^3/uL Basophils # (Auto) 0 0-0.2 10 ^3/uL Nucleated Red Blood Cells 0.1 % Sodium Level 140 136-145 mmol/L Potassium Level 4.0 3.5-5.1 mmol/L Chloride Level 107 98-107 mmol/L Carbon Dioxide Level 23 20-31 mmol/L Anion Gap 10 5-15 Blood Urea Nitrogen 9 9-23 mg/dL Creatinine 0.86 0.550-1.02 mg/dL Glomerular Filtration Rate Calc 77 >90 mL/min BUN/Creatinine Ratio 10.5 10.0-20.0 Serum Glucose 189 H 74-106 mg/dL Calcium Level 9.8 8.7-10.4 mg/dL Total Bilirubin 0.3 0.2-1.0 mg/dL Aspartate Amino Transferase (AST) 19 13-40 U/L Alanine Aminotransferase (ALT) 15 7-40 U/L Alkaline Phosphatase 125 H 46-116 U/L Total Protein 7.9 5.7-8.2 g/dL Albumin 4.8 3.2-4.8 g/dL Reticulocyte Count (auto) 0.77 0.5-1.5 % Lactic Acid Level 1.9 0.4-2.0 mmol/L Troponin I High Sensitivity < 3 L </=34 ng/L B-Type Natriuretic Peptide 25.83 0-100 pg/mL Influenza Type A Antigen Negative Negative Influenza Type B Antigen Negative Negative SARS-CoV-2 Antigen (Rapid) Negative NEGATIVE Creatine Kinase 59 34-145 U/L Assessment/Plan Plan Patient is a 59-year-old female who presented with 1 day of bilateral chest pain/shortness of breath/neck pain/headache/back pain/leg pains. Patient does have history of sickle cell disease. She mentions that the presentation is compatible to her sickle cell crises. Mentions that the last time she visited office equipment technician was a couple of years ago in [place]. She mentions that she has had stress test in [place] and was told it was normal (2 to 3 years ago). Cardiology is involved for cardiac aspects of care. Denies exertional component to the discomforts. Denies smoking/substance abuse. Not in acute distress at the time of evaluation. Lying flat in bed. No JVD. Mucosa is pink and wet. No goiter. Not using accessory muscles of breathing. Lungs are clear to auscultation. Cardiac: Regular, no thrill/gallop. Systolic murmur 2/6 in the apex is heard. Chest wall is tender. Abdomen is soft. Bowel sound is positive. Generalized tenderness in the abdomen is observed. No rebound tenderness. Dorsalis pedis is 2+. No peripheral edema. Past medical history includes sickle cell disease, asthma, anemia, history of hysterectomy/tubal ligation/gastric bypass and liposuction. WBC: 6.3 - 3.6 Hemoglobin: 12.3 - 12.1 Platelet: 166 - 120 Potassium: 3.8 - 4.0 Creatinine: 0.93 - 0.86 BNP: 25.83 Troponin (high sensitive): <3 - <3 Chest x-ray revealed: IMPRESSION: Right basilar atelectasis or pneumonia. EKG reveals sinus rhythm with no ST-T changes Tele reveals sinus rhythm Patient is a 59-year-old female who presented with generalized body pain including bilateral chest pain/neck pain/low back pain/bilateral lower extremity pain. Does have history of sickle cell disease and presentation questions sickle cell crisis. Did have some chest discomfort. There is question about acute chest syndrome. Serial troponin has been negative. EKG has been nonrevealing. It is of note that the patient has been following with [place] [facility] (last visit 2-3 years ago) and mentions that the previous stress test (performed in 2-3 years ago) in [place] has been nonrevealing (no report is available to confirm/review). Presentation is not in favor of acute coronary syndrome Acute chest syndrome? Sickle cell crisis General body pain History of anemia Asthma, history of Anemia Cardiac suggestion for management: Manage on telemetry Follow-up on electrolytes and kidney function tests and correct abnormalities Request for echocardiogram TFT Evaluation and management chest x-ray finding (atelectasis versus pneumonia) per primary team/pulmonary Pain management and fluid resuscitation as per primary team Ischemic workup can be arranged as outpatient Further evaluation and management depends on the above and clinical course Thank you for consultation A total of 75 minutes was spent reviewing the patient record, examining the patient, making a diagnostic and therapeutic plan, discussing this plan with medical personnel, following up on diagnostic studies and following the patient for clinical stability excluding any and all procedures. At least 50% of this time was spent in direct, [id number] contact. Thank you for allowing me to participate in this patient's care. Further recommendations will depend on patient's clinical course. Please do not hesitate to contact me if you have any questions or concerns. This medical document was created using electronic medical record system with [employer] computerized dictation system. Although this document has been carefully reviewed, there may still be some phonetic and typographical errors. These areas are purely typographical due to the imperfection of the software programs, and do not reflect any compromise in the patient's medical care. Plan discussed with: Patient, Other (nurse) MICHAEL TONG MD Nov 18, 2024 07:02
[2024-11-18 09:20] VITALS: BP 121/70; PULSE 63; RESP 16; TEMP 97.5; O2SAT 100
[2024-11-18] MEDS: PANTOPRAZOLE 40 MG TAB PO SCH (09:21)
[2024-11-18] MEDS: FOLIC ACID 1 MG TAB PO SCH (09:22)
--- NOTE | 2024-11-18 10:10 | ECG ---
[facility] Test Date: 2024-11-17 Test Time: 17:56:11 [facility] Department[facility] ER Room: [address] [place] [address] Gender: F Returned Materials Inspector: NEIL : [id number] Requested By: JOANA HUTSON Order Number: [id number] Reading MD: Measurements Intervals [place] Rate: 81 P: 72 PA: 144 QRS: 71 QRSD: 95 T: 42 QT: 395 QTc: 459 Interpretive Statements Sinus rhythm Please click the below link to view image of tracing.
[2024-11-18] MEDS: ENOXAPARIN SOD 40 MG/0.4 ML SYRINGE SC SCH (12:20)
[2024-11-18 13:00] VITALS: BP 138/77; PULSE 67; RESP 17; TEMP 97.8; O2SAT 96
[2024-11-18] MEDS: ONDANSETRON HCL 4 MG/2 ML VIAL IV PRN (13:16)
[2024-11-18 15:40] VITALS: BP 126/69; PULSE 56; RESP 16; TEMP 97.7; O2SAT 95
[2024-11-18] MEDS: ACETAMINOPHEN 325 MG TAB PO PRN (16:13)
--- NOTE | 2024-11-18 16:36 | DVHPN2 ---
Progress Note - Dictate Date Seen: Nov 18, 2024 Medical Necessity Reason Pt with a Central, PICC or Fol: No vital signs Vital Sign Date Time Temp Pulse Resp B/P (MAP) Pulse Ox O2 Delivery O2 Flow Rate FiO2 11/18/24 13:00 97.8 67 17 138/77 (97) 96 97.8 11/17/24 23:37 Room Air* 0 21 Total Intake and Output 11/17/24 11/17/24 11/18/24 15:00 23:00 07:00 Intake Total 1360 ml Balance 1360 ml medications Current Medications Medications Dose Ordered Sig/Genesis Route Start Time Stop Time Status Last Admin Dose Admin Sodium Chloride 1,000 ml @ 120 mls/hr Q8H20M IV 11/17/24 22:00 11/18/24 03:31 120 MLS/HR Acetaminophen/ Hydrocodone Bitart 1 tab Q4HP PRN PO 11/17/24 22:00 Temazepam 15 mg QHSP PRN PO 11/17/24 22:00 Ondansetron HCl 4 mg Q4HP PRN IV 11/17/24 22:00 11/18/24 13:16 4 MG Docusate Sodium 100 mg BIDPRN PRN PO 11/17/24 22:00 Enoxaparin Sodium 40 mg DAILY SC 11/18/24 10:00 11/18/24 12:20 40 MG Acetaminophen 650 mg Q6HP PRN PO 11/17/24 22:00 11/18/24 16:13 650 MG Nitroglycerin 0.4 mg Q5MINP PRN SL 11/17/24 22:00 Folic Acid 1 mg DAILY PO 11/18/24 10:00 11/18/24 09:22 1 MG Pantoprazole Sodium 40 mg DAILY PO 11/18/24 10:00 11/18/24 09:21 40 MG Hydromorphone HCl 1 mg Q4HP PRN IV 11/17/24 22:00 11/18/24 09:23 1 MG Cyclobenzaprine HCl 10 mg BIDPRN PRN PO 11/18/24 16:45 UNV Sertraline HCl 50 mg HS PO 11/18/24 22:00 UNV objective General Appearance: alert, no distress HEENT: EOMI, PERRLA, normal external inspect of ears, no icterus, no nasal drainage Neck: no carotid bruit, no jugular venous distention (JVD), no lymphadenopathy Chest: normal thorax Respiratory: clear to auscultation, normal air movement Cardiovascular: regular rate and rhythm, no diastolic murmur, no jugular venous distention (JVD), no rub, no systolic murmur Abdominal: soft, no hepatomegaly, no mass, no splenomegaly, no tenderness Genitourinary: grossly normal external Musculoskeletal: no joint tenderness, no swelling Extremities: normal pulses, no calf tenderness, no clubbing, no cyanosis, no edema Skin: no bruising, no jaundice, no rash Neurological: alert, No focal deficit laboratory and microbiology Laboratory Tests 11/18/24 04:31 Test 11/18/24 04:31 Range/Units Serum Glucose 189 H 74-106 mg/dL Problem List 1. Sickle cell crisis Medication, monitoring, hematology consult 2. Chest pain Pain control, DVT prophylaxis Assessment/Plan Subjective: Patient is awake and alert. Objective: Patient states her chest pain is much better. Patient was admitted for sickle cell crisis. Patient was started on IV fluids and given PRN pain medication. Hematology has been consulted. Patient was seen by cardiology, and chest pain is most likely not cardiac in nature. Plan: Continue current treatment. Hematology consult. Continue IV fluids. Plan discussed with: Patient, Other YUNIOR CEJA NP Nov 18, 2024 16:36
[2024-11-18] MEDS ORDERED: CYCLOBENZAPRINE HCL 10 MG TAB PO PRN (16:45)
[2024-11-18 17:00] VITALS: BP 131/77; PULSE 67; RESP 16; TEMP 97.8; O2SAT 95
[2024-11-18 20:00] VITALS: PULSE 80
[2024-11-18 21:00] VITALS: BP 126/72; PULSE 59; RESP 18; TEMP 97.6; O2SAT 100
[2024-11-18] MEDS: SERTRALINE HCL 50 MG TAB PO SCH (22:00)
[2024-11-19] VITALS (8 sets, daily range): BP systolic 103–131; BP diastolic 56–82; PULSE 59–96; RESP 16–19; TEMP 97.5–98.4; O2SAT 90–100
--- NOTE | 2024-11-19 06:33 | DVHSR ---
APPROVED REPORT EXAM: Two-dimensional and M-mode echocardiogram with Doppler and color Doppler. Blood Pressure: 119/64 mmHg INDICATION Chest Pain RISK FACTORS Height: 5'9", Weight: 150 DIMENSIONS LVDd4.3 (3.8-5.7cm)LA (2D)3.4 (1.9-4.0cm)Aortic Root3.3 (2.0-3.7cm) LVDs2.8 (2.5-4.0cm)LA (MM) (1.9-4.0cm)Aortic Cusp Exc1.5 (1.5-2.0cm) EF (%) 65.0 (55-70%)Rt. Atrium4.0 (1.9-4.0cm)Asc. Aorta cm IVSd0.8 (0.7-1.1cm)RV (D)3.7 (1.8-2.4cm) PWd0.8 (0.7-1.1cm) Mitral Valve MitralMitral Stenosis E wave1.22m/sMV Mean GR.mmHg A wave0.92m/sMV Peak GR.mmHg E/A ratio1.32D MVAcm2 DECEL [id number] 1/2 Tim[place] Aortic Valve Aortic ValveAortic Stenosis V11.15m/Gallo Mean GR.5mmHg V21.68m/Gallo Peak GR.11mmHg LVOT Diameter2.0 (1.8-2.4cm)Doppler AVA2.15cm2 Pulmonic Valve V21.02m/s Tricuspid Valve TR Velocity2.50m/s [id number] Conclusion Left ventricle: Left ventricle was normal-sized with normal systolic function. LVEF was 65-70%. Th ere was no wall motion abnormality. Diastolic function was considered normal. Right ventricle was normal-sized with normal systolic function. Both atria were normal-sized. Aortic valve was trileaflet. There was no aortic insufficiency/stenosis. There was trace mitral reg urgitation. There was mild tricuspid regurgitation. There was no pulmonary valve insufficiency. Right ventricular systolic pressure was assessed at 28 mm Hg. IVC was normal-sized with normal respi ratory variation. There was trace pericardial effusion.
--- NOTE | 2024-11-19 06:35 | DVHPN2 ---
Progress Note - Dictate Date Seen: Nov 19, 2024 Medical Necessity Reason Pt with a Central, PICC or Fol: No vital signs Vital Sign Date Time Temp Pulse Resp B/P (MAP) Pulse Ox O2 Delivery O2 Flow Rate FiO2 11/19/24 06:09 65 18 104/58 11/19/24 01:00 97.6 95 97.6 11/17/24 23:37 Room Air* 0 21 Total Intake and Output 11/18/24 11/18/24 11/19/24 15:00 23:00 07:00 Intake Total 1080 ml Balance 1080 ml medications Current Medications Medications Dose Ordered Sig/Genesis Route Start Time Stop Time Status Last Admin Dose Admin Sodium Chloride 1,000 ml @ 120 mls/hr Q8H20M IV 11/17/24 22:00 11/18/24 23:00 120 MLS/HR Acetaminophen/ Hydrocodone Bitart 1 tab Q4HP PRN PO 11/17/24 22:00 Temazepam 15 mg QHSP PRN PO 11/17/24 22:00 Ondansetron HCl 4 mg Q4HP PRN IV 11/17/24 22:00 11/18/24 13:16 4 MG Docusate Sodium 100 mg BIDPRN PRN PO 11/17/24 22:00 Enoxaparin Sodium 40 mg DAILY SC 11/18/24 10:00 11/18/24 12:20 40 MG Acetaminophen 650 mg Q6HP PRN PO 11/17/24 22:00 11/18/24 16:13 650 MG Nitroglycerin 0.4 mg Q5MINP PRN SL 11/17/24 22:00 Folic Acid 1 mg DAILY PO 11/18/24 10:00 11/18/24 09:22 1 MG Pantoprazole Sodium 40 mg DAILY PO 11/18/24 10:00 11/18/24 09:21 40 MG Hydromorphone HCl 1 mg Q4HP PRN IV 11/17/24 22:00 11/19/24 06:09 1 MG Cyclobenzaprine HCl 10 mg BIDPRN PRN PO 11/18/24 16:45 Sertraline HCl 50 mg HS PO 11/18/24 22:00 laboratory and microbiology Laboratory Tests 11/18/24 04:31 Test 11/18/24 04:31 Range/Units Serum Glucose 189 H 74-106 mg/dL Assessment/Plan Patient is a 59-year-old female who presented with 1 day of bilateral chest pain/shortness of breath/neck pain/headache/back pain/leg pains. Patient does have history of sickle cell disease. She mentions that the presentation is compatible to her sickle cell crises. Mentions that the last time she visited computer science teacher was a couple of years ago in [place]. She mentions that she has had stress test in [place] and was told it was normal (2 to 3 years ago). Cardiology is involved for cardiac aspects of care. Denies exertional component to the discomforts. Denies smoking/substance abuse. Not in acute distress at the time of evaluation. Lying flat in bed. No JVD. Mucosa is pink and wet. No goiter. Not using accessory muscles of breathing. Lungs are clear to auscultation. Cardiac: Regular, no thrill/gallop. Systolic murmur 2/6 in the apex is heard. Chest wall is tender. Abdomen is soft. Bowel sound is positive. Generalized tenderness in the abdomen is observed. No rebound tenderness. Dorsalis pedis is 2+. No peripheral edema. Past medical history includes sickle cell disease, asthma, anemia, history of hysterectomy/tubal ligation/gastric bypass and liposuction. WBC: 6.3 - 3.6 Hemoglobin: 12.3 - 12.1 Platelet: 166 - 120 Potassium: 3.8 - 4.0 Creatinine: 0.93 - 0.86 BNP: 25.83 Troponin (high sensitive): <3 - <3 TSH: 0.45 Chest x-ray revealed: IMPRESSION: Right basilar atelectasis or pneumonia. EKG reveals sinus rhythm with no ST-T changes Tele reveals sinus rhythm Echocardiogram revealed: Left ventricle: Left ventricle was normal-sized with normal systolic function. LVEF was 65-70%. There was no wall motion abnormality. Diastolic function was considered normal. Right ventricle was normal-sized with normal systolic function. Both atria were normal-sized. Aortic valve was trileaflet. There was no aortic insufficiency/stenosis. There was trace mitral regurgitation. There was mild tricuspid regurgitation. There was no pulmonary valve insufficiency. Right ventricular systolic pressure was assessed at 28 mm Hg. IVC was normal-sized with normal respiratory variation. There was trace pericardial effusion. Patient is a 59-year-old female who presented with generalized body pain including bilateral chest pain/neck pain/low back pain/bilateral lower extremity pain. Does have history of sickle cell disease and presentation questions sickle cell crisis. Did have some chest discomfort. There is question about acute chest syndrome. Serial troponin has been negative. EKG has been nonrevealing. It is of note that the patient has been following with [place] [facility] (last visit 2-3 years ago) and mentions that the previous stress test (performed in 2-3 years ago) in [place] has been nonrevealing (no report is available to confirm/review). Presentation is not in favor of acute coronary syndrome Acute chest syndrome? Sickle cell crisis General body pain History of anemia Asthma, history of Anemia Cardiac suggestion for management: Manage on telemetry Follow-up on electrolytes and kidney function tests and correct abnormalities Evaluation and management chest x-ray finding (atelectasis versus pneumonia) per primary team/pulmonary Pain management and fluid resuscitation as per primary team Ischemic workup can be arranged as outpatient Further evaluation and management depends on the above and clinical course Cardiac gil is stable A total of 55 minutes was spent reviewing the patient record, examining the patient, making a diagnostic and therapeutic plan, discussing this plan with medical personnel, following up on diagnostic studies and following the patient for clinical stability excluding any and all procedures. At least 50% of this time was spent in direct, [id number] contact. Thank you for allowing me to participate in this patient's care. Further recommendations will depend on patient's clinical course. Please do not hesitate to contact me if you have any questions or concerns. This medical document was created using electronic medical record system with [employer] computerized dictation system. Although this document has been carefully reviewed, there may still be some phonetic and typographical errors. These areas are purely typographical due to the imperfection of the software programs, and do not reflect any compromise in the patient's medical care. Plan discussed with: Patient, Other (nurse) MICHAEL TONG MD Nov 19, 2024 06:35
--- NOTE | 2024-11-19 09:02 | DVHINCON2 ---
Date of service: Nov 19, 2024 Referring Physician Osman Early Reason for Consultation Pains in the legs in the low back with a history of beta thalassemia History of Present Illness 59 years old black female who gives a history of beta thalassemia. She used to get blood transfusions with heavy menstruation and then had hysterectomy in 2011 since then her transfusion requirements became less and less and she has not needed any transfusions. Gives a history of gastric bypass surgery in 1999. She has needed IV iron infusions in the past. Last time she had a blood transfusion was probably around four years back. In 2011 she says she was diagnosed with beta thalassemia. Her sister has thalassemia also one of four children may have thalassemia also. She takes morphine once a week and sometimes Motrin for leg pains in the low back pains. And has the pains gag got where she came into the ER and was admitted to the hospital 11/18/2024: White count 3.6 hemoglobin 12.1 RBCs 5.51 MCV 71.8 platelets [id number] Normal renal and hepatic functions. Alkaline phosphatase 125 total protein 7.9 albumin 4.8 Chest x-ray showed right basilar atelectasis or pneumonia Has some feeling of nausea and did vomit one time yesterday. No headaches, no fevers night sweats bruising or bleeding. Bowel movements are fine. No urinary discomfort Past Medical History History of better thalassemia History of asthma Gastric bypass surgery in 2000 Hysterectomy in 2011 Liposuction Family History: FH: diabetes mellitus G8 MOTHER G8 FATHER FH: hypertension G8 MOTHER G8 FATHER Family History One sister and one daughter has thalassemia Social History No smoking drinking or drugs Allergies: Coded Allergies: Codeine (Verified Allergy, Unknown, 04/17/22) Penicillins (Verified Allergy, Unknown, 04/17/22) Home Meds Active Scripts Prednisone (Prednisone) 20 Mg Tab, 20 MG PO DAILY for 5 Days, #5 MG Prov:BRITTANI CHANEL ANALYTICAL SCIENCES DIRECTOR 09/25/23 Meclizine HCl (Meclizine 25) 25 Mg Tab, 50 MG PO TID PRN, #60 TAB Prov:BRITTANI CHANEL ANALYTICAL SCIENCES DIRECTOR 09/25/23 Albuterol Sulfate (VENTOLIN MDI) 90 Mcg Ih, 90 MCG IN Q6HPRN PRN for 30 Days, #1 KIT 0 Refills Prov:PHAM SHAW NP 11/20/23 Methylprednisolone (Medrol Dosepak) 4 Mg Santiago, 4 MG PO UD, #21 TAB 0 Refills UAD Prov:PHAM SHAW NP 08/13/23 Meclizine HCl (Meclizine 25) 25 Mg Tab, 25 MG PO DAILY for 7 Days, #7 TAB Prov:ZION CARLIN MD 06/05/23 Levofloxacin Hemihydrate (LEVOFLOXACIN) 500 Mg Tab, 1 TAB PO DAILY for 7 Days, #7 TAB Prov:ZION CARLIN MD 08/30/22 Prednisone (Prednisone) 20 Mg Tab, 20 MG PO DAILY for 5 Days, #5 MG Prov:ZION CARLIN MD 08/30/22 Prednisone (Prednisone) 20 Mg Tab, 20 MG PO BID for 5 Days, #10 MG 0 Refills Prov:AMADA MARX 04/17/22 Doxycycline (Monohydrate) (Doxycycline) 100 Mg Cap, 100 MG PO BID for 7 Days, #14 CAP 0 Refills Prov:AMADA MARX 04/17/22 Lidocaine HCl (Mouth-Throat) (Lidocaine HCl Viscous) 2 % Jacque, 2 % PO TID for 7 Days, #100 ML Prov:EVAN MENDENHALL 10/07/21 Azithromycin (Azithromycin) 500 Mg Tab, 500 MG PO DAILY for 5 Days, #5 TAB Prov:EVAN MENDENHALL 10/07/21 Ipratropium [place] (Ipratropium [place]) 0.02 % Jacque, 0.5 MG NEB Q6HP PRN, #2 BOX Prov:ALLISON TURNER MD 02/11/21 Ferrous Sulfate (FERROUS SULFATE) 325 Mg Tb, 1 TAB PO DAILY, #60 TAB 0 Refills Prov:ALLISON TURNER MD 02/11/21 Levofloxacin Hemihydrate (LEVOFLOXACIN) 750 Mg Tab, 1 TAB PO DAILY, #5 TAB Prov:ALLISON TURNER MD 02/11/21 Albuterol Sulfate (Ventolin) 2.5 Mg/0.5 Ml Nb, 2.5 MG NEB Q6HP PRN, #2 BOX 0 Refills Prov:ALLISON TURNER MD 02/11/21 Reported Medications Cyclobenzaprine HCl (Cyclobenzaprine Hydrochlo) 10 Mg Tab, 1 TAB PO BIDPRN PRN for FOR MUSCLE SPASM 02/05/21 Sertraline Hcl (Sertraline Hcl) 50 Mg Tab, 1 TAB PO DAILYPRN 02/05/21 Current Medications Current Medications Medications (Trade) Dose Ordered Sig/Genesis Route PRN Reason Start Time Stop Time Status Last Admin Enoxaparin Sodium (Lovenox) 40 mg DAILY SC 11/18/24 10:00 11/19/24 07:57 Folic Acid 1 mg DAILY PO 11/18/24 10:00 11/19/24 07:56 Pantoprazole Sodium (Protonix Tablet) 40 mg DAILY PO 11/18/24 10:00 11/19/24 07:56 Cyclobenzaprine HCl (Flexeril Tablet) 10 mg BIDPRN PRN PO FOR MUSCLE SPASM 11/18/24 16:45 Sertraline HCl (Zoloft) 50 mg HS PO 11/18/24 22:00 Vital Signs Vital Signs Date Time Temp Pulse Resp B/P (MAP) Pulse Ox O2 Delivery O2 Flow Rate FiO2 11/19/24 06:39 61 18 125/70 11/19/24 05:00 97.5 92 97.5 11/17/24 23:37 Room Air* 0 21 Physical Exam Moderately built and nourished, in no acute distress, alert and oriented. No jaundice Head and neck: Unremarkable for any masses or neck nodes. No conjunctival or mucosal hemorrhage Lungs: Clear Cardiovascular: S1-S2 heard well Abdomen: No organomegaly, tenderness or ascites. Bowel sounds are present. Extremities: No clubbing edema cyanosis or calf tenderness. She is sensitive to touch on both lower extremities and feels that cold air mixed the pains worse Skin: Unremarkable for petechia purpura ecchymosis Lymphadenopathy: None Neurological exam: No focal deficit Labs/Diagnostic Data Labs Test 11/18/24 04:31 11/17/24 22:17 11/17/24 22:00 11/17/24 19:12 Range/Units White Blood Count 3.6 #L 4.4-10.8 10^3/uL Red Blood Count 5.51 H 4.0-5.20 10^6/uL Hemoglobin 12.1 L 12.2-16.2 g/dL Hematocrit 39.6 36.0-46.0 % Mean Corpuscular Volume 71.8 L 80.0-100.0 fL Mean Corpuscular Hemoglobin 21.9 L 28.0-32.0 pg Mean Corpuscular Hemoglobin Concent 30.6 L 32.0-36.0 g/dL Red Cell Distribution Width 15.1 H 11.8-14.3 % Platelet Count 120 L 140-450 10^3/uL Mean Platelet Volume 11.9 H 6.9-10.8 fL Neutrophils (%) (Auto) 88.6 H 37.0-80.0 % Lymphocytes (%) (Auto) 9.7 L 10.0-50.0 % Monocytes (%) (Auto) 1.7 0.0-12.0 % Eosinophils (%) (Auto) 0.0 0.0-7.0 % Basophils (%) (Auto) 0.0 0.0-2.0 % Neutrophils # (Auto) 3.1 1.6-8.6 10 ^3/uL Lymphocytes # (Auto) 0.3 L 0.4-5.4 10 ^3/uL Monocytes # (Auto) 0.1 0-1.3 10 ^3/uL Eosinophils # (Auto) 0 0-0.8 10 ^3/uL Basophils # (Auto) 0 0-0.2 10 ^3/uL Nucleated Red Blood Cells 0.1 % Sodium Level 140 136-145 mmol/L Potassium Level 4.0 3.5-5.1 mmol/L Chloride Level 107 98-107 mmol/L Carbon Dioxide Level 23 20-31 mmol/L Anion Gap 10 5-15 Blood Urea Nitrogen 9 9-23 mg/dL Creatinine 0.86 0.550-1.02 mg/dL Glomerular Filtration Rate Calc 77 >90 mL/min BUN/Creatinine Ratio 10.5 10.0-20.0 Serum Glucose 189 H 74-106 mg/dL Calcium Level 9.8 8.7-10.4 mg/dL Total Bilirubin 0.3 0.2-1.0 mg/dL Aspartate Amino Transferase (AST) 19 13-40 U/L Alanine Aminotransferase (ALT) 15 7-40 U/L Alkaline Phosphatase 125 H 46-116 U/L Total Protein 7.9 5.7-8.2 g/dL Albumin 4.8 3.2-4.8 g/dL Thyroid Stimulating Hormone (TSH) 0.45 L 0.55-4.78 uIU/mL Reticulocyte Count (auto) 0.77 0.5-1.5 % Lactic Acid Level 1.9 0.4-2.0 mmol/L Troponin I High Sensitivity < 3 L </=34 ng/L B-Type Natriuretic Peptide 25.83 0-100 pg/mL Influenza Type A Antigen Negative Negative Influenza Type B Antigen Negative Negative SARS-CoV-2 Antigen (Rapid) Negative NEGATIVE Creatine Kinase 59 34-145 U/L Microbiology Date/Time Source Procedure Growth Status 11/17/24 22:17 Blood Blood Culture - Preliminary NO GROWTH AFTER 24 HOURS OF INCUBATION. Resulted Assessment 1.Pains in the low back and the lower extremities less likely to be thalassemia or sickle cell causing this problem. Etiology to be determined 2. history of beta thalassemia (the reports on the electrophoresis to be obtain ed from 2020 from the laboratory) 3. History of gastric bypass surgery in 2000 4. History of hysterectomy in 2011 Plan/Recommendation Venous Doppler of the lower extremities feel MRI of the lumbosacral spine with and without contrast Continue the folic acid and her pain management Get her hemoglobin electrophoresis report from January 2021 from the lab Plan discussed with: Patient MELIZA BUNCH MD Nov 19, 2024 09:02
[2024-11-19] MEDS: LORazepam 2MG/ML-1ML VIAL IV ONE (13:39)
--- NOTE | 2024-11-19 14:08 | DVHPN2 ---
Progress Note - Dictate Date Seen: Nov 19, 2024 Medical Necessity Reason Pt with a Central, PICC or Fol: No vital signs Vital Sign Date Time Temp Pulse Resp B/P (MAP) Pulse Ox O2 Delivery O2 Flow Rate FiO2 11/19/24 13:17 98.4 90 16 117/61 (79) 90 98.4 11/19/24 08:00 Room Air* 0 21 Total Intake and Output 11/18/24 11/18/24 11/19/24 15:00 23:00 07:00 Intake Total 1080 ml Balance 1080 ml medications Current Medications Medications Dose Ordered Sig/Genesis Route Start Time Stop Time Status Last Admin Dose Admin Sodium Chloride 1,000 ml @ 120 mls/hr Q8H20M IV 11/17/24 22:00 11/19/24 06:58 120 MLS/HR Acetaminophen/ Hydrocodone Bitart 1 tab Q4HP PRN PO 11/17/24 22:00 Temazepam 15 mg QHSP PRN PO 11/17/24 22:00 Ondansetron HCl 4 mg Q4HP PRN IV 11/17/24 22:00 11/18/24 13:16 4 MG Docusate Sodium 100 mg BIDPRN PRN PO 11/17/24 22:00 Enoxaparin Sodium 40 mg DAILY SC 11/18/24 10:00 11/19/24 07:57 40 MG Acetaminophen 650 mg Q6HP PRN PO 11/17/24 22:00 11/18/24 16:13 650 MG Nitroglycerin 0.4 mg Q5MINP PRN SL 11/17/24 22:00 Folic Acid 1 mg DAILY PO 11/18/24 10:00 11/19/24 07:56 1 MG Pantoprazole Sodium 40 mg DAILY PO 11/18/24 10:00 11/19/24 07:56 40 MG Hydromorphone HCl 1 mg Q4HP PRN IV 11/17/24 22:00 11/19/24 06:09 1 MG Cyclobenzaprine HCl 10 mg BIDPRN PRN PO 11/18/24 16:45 Sertraline HCl 50 mg HS PO 11/18/24 22:00 objective General Appearance: alert, no distress HEENT: EOMI, PERRLA, normal external inspect of ears, no icterus, no nasal drainage Neck: no carotid bruit, no jugular venous distention (JVD), no lymphadenopathy Chest: normal thorax Respiratory: clear to auscultation, normal air movement Cardiovascular: regular rate and rhythm, no diastolic murmur, no jugular venous distention (JVD), no rub, no systolic murmur Abdominal: soft, no hepatomegaly, no mass, no splenomegaly, no tenderness Genitourinary: grossly normal external Musculoskeletal: no joint tenderness, no swelling Extremities: normal pulses, no calf tenderness, no clubbing, no cyanosis, no edema Skin: no bruising, no jaundice, no rash Neurological: alert, No focal deficit laboratory and microbiology Laboratory Tests 11/18/24 04:31 Test 11/18/24 04:31 Range/Units Serum Glucose 189 H 74-106 mg/dL Problem List 1. Beta thalassemia Monitor, hematology consult 2. Chest pain Pain control, DVT prophylaxis Assessment/Plan Subjective: Patient is very lethargic today. Objective: Patient recently has returned from her MRI of the L spine as ordered by hematology. Patient was seen by hematology. Patient has a history of thalassemia. MRI imaging was done. Results are still pending. Plan: Continue I.V. hydration. Continue medications for chest pain and hematology recommendations. Appreciate DC planning for tomorrow. Plan discussed with: Patient, Other YUNIOR CEJA NP Nov 19, 2024 14:08
--- NOTE | 2024-11-19 14:42 | DVH ---
MRI LUMBAR SPINE CLINICAL HISTORY: pains legs and back TECHNIQUE: Multiplanar, multisequence MR images of the lumbar spine with and without contrast. 10/10 cc of gadavist contrast from a prefilled syringe was administered intravenously. Comparison: None FINDINGS: The conus terminates at the T12-L1 disc level and demonstrates normal caliber and signal. There is no pathologic enhancement. The lumbar vertebral bodies demonstrate normal height and marrow signal. The re is a sacralized L5 vertebral body. There is exaggerated lumbar lordosis. There is multilevel disc desiccation with disc space narrowing. There is multilevel facet arthropathy. The paraspinal soft ti ssues appear within normal limits. At L1-L2 there is bilateral facet arthropathy. There is no significant disc herniation. There is no canal or significant foraminal stenosis. At L2-L3 there is bilateral facet arthropathy and diffuse disc bulge. There is no significant central canal stenosis. There is [id number] right and mild left neural foraminal stenosis. At L3-L4 there is bilateral facet arthropathy and diffuse disc bulge. There is no significant spinal canal stenosis. There is [id number] right and mild left neural foraminal stenosis At L4-L5 there is diffuse disc bulge and bilateral facet arthropathy. There is mild central canal eugenia nosis with narrowing of the lateral recesses. There is moderate to severe left and moderate right amie ral foraminal stenosis. At L5-S1 there is no spinal canal or significant foraminal stenosis. IMPRESSION: 1. Exaggerated lumbar lordosis with multilevel degenerative changes as described above, worst at L4-L 5. 2. There is mild central canal and moderate to severe left and moderate right neural foraminal stenos is at L4-L5. 3. Transitional anatomy at the lumbosacral junction with sacralized L5 vertebral body. HS:Y
[2024-11-19] MEDS: GADOTERATE MEG 10 MMOL/20ml INJ (0.5MMOL/ml) IV ONE (16:24)
[2024-11-20] VITALS (7 sets, daily range): BP systolic 104–121; BP diastolic 61–73; PULSE 62–76; RESP 15–20; TEMP 97–97.9; O2SAT 95–100
--- NOTE | 2024-11-20 07:32 | DVHPN2 ---
Progress Note - Dictate Date Seen: Nov 20, 2024 Medical Necessity Reason Pt with a Central, PICC or Fol: No vital signs Vital Sign Date Time Temp Pulse Resp B/P (MAP) Pulse Ox O2 Delivery O2 Flow Rate FiO2 11/20/24 05:00 97.9 68 15 104/61 (75) 95 97.9 11/19/24 20:00 Room Air* 0 21 Total Intake and Output 11/19/24 11/19/24 11/20/24 15:00 23:00 07:00 Intake Total 960 ml 500 ml Balance 960 ml 500 ml medications Current Medications Medications Dose Ordered Sig/Genesis Route Start Time Stop Time Status Last Admin Dose Admin Sodium Chloride 1,000 ml @ 120 mls/hr Q8H20M IV 11/17/24 22:00 11/20/24 00:07 120 MLS/HR Acetaminophen/ Hydrocodone Bitart 1 tab Q4HP PRN PO 11/17/24 22:00 Temazepam 15 mg QHSP PRN PO 11/17/24 22:00 Ondansetron HCl 4 mg Q4HP PRN IV 11/17/24 22:00 11/18/24 13:16 4 MG Docusate Sodium 100 mg BIDPRN PRN PO 11/17/24 22:00 Enoxaparin Sodium 40 mg DAILY SC 11/18/24 10:00 11/19/24 07:57 40 MG Acetaminophen 650 mg Q6HP PRN PO 11/17/24 22:00 11/18/24 16:13 650 MG Nitroglycerin 0.4 mg Q5MINP PRN SL 11/17/24 22:00 Folic Acid 1 mg DAILY PO 11/18/24 10:00 11/19/24 07:56 1 MG Pantoprazole Sodium 40 mg DAILY PO 11/18/24 10:00 11/19/24 07:56 40 MG Hydromorphone HCl 1 mg Q4HP PRN IV 11/17/24 22:00 11/19/24 06:09 1 MG Cyclobenzaprine HCl 10 mg BIDPRN PRN PO 11/18/24 16:45 Sertraline HCl 50 mg HS PO 11/18/24 22:00 laboratory and microbiology Laboratory Tests 11/18/24 04:31 Test 11/18/24 04:31 Range/Units Serum Glucose 189 H 74-106 mg/dL Assessment/Plan Patient is a 59-year-old female who presented with 1 day of bilateral chest pain/shortness of breath/neck pain/headache/back pain/leg pains. Patient does have history of sickle cell disease. She mentions that the presentation is compatible to her sickle cell crises. Mentions that the last time she visited part time was a couple of years ago in [place]. She mentions that she has had stress test in [place] and was told it was normal (2 to 3 years ago). Cardiology is involved for cardiac aspects of care. Denies exertional component to the discomforts. Denies smoking/substance abuse. Not in acute distress at the time of evaluation. Lying flat in bed. No JVD. Mucosa is pink and wet. No goiter. Not using accessory muscles of breathing. Lungs are clear to auscultation. Cardiac: Regular, no thrill/gallop. Systolic murmur 2/6 in the apex is heard. Chest wall is tender. Abdomen is soft. Bowel sound is positive. Generalized tenderness in the abdomen is observed. No rebound tenderness. Dorsalis pedis is 2+. No peripheral edema. Past medical history includes sickle cell disease, asthma, anemia, history of hysterectomy/tubal ligation/gastric bypass and liposuction. WBC: 6.3 - 3.6 Hemoglobin: 12.3 - 12.1 Platelet: 166 - 120 Potassium: 3.8 - 4.0 Creatinine: 0.93 - 0.86 BNP: 25.83 Troponin (high sensitive): <3 - <3 TSH: 0.45 Chest x-ray revealed: IMPRESSION: Right basilar atelectasis or pneumonia. Lumbar spine MRI reported: IMPRESSION: 1. Exaggerated lumbar lordosis with multilevel degenerative changes as described above, worst at L4-L5. 2. There is mild central canal and moderate to severe left and moderate right neural foraminal stenosis at L4-L5. 3. Transitional anatomy at the lumbosacral junction with sacralized L5 vertebral body. EKG reveals sinus rhythm with no ST-T changes Tele reveals sinus rhythm Echocardiogram revealed: Left ventricle: Left ventricle was normal-sized with normal systolic function. LVEF was 65-70%. There was no wall motion abnormality. Diastolic function was considered normal. Right ventricle was normal-sized with normal systolic function. Both atria were normal-sized. Aortic valve was trileaflet. There was no aortic insufficiency/stenosis. There was trace mitral regurgitation. There was mild tricuspid regurgitation. There was no pulmonary valve insufficiency. Right ventricular systolic pressure was assessed at 28 mm Hg. IVC was normal-sized with normal respiratory variation. There was trace pericardial effusion. Patient is a 59-year-old female who presented with generalized body pain including bilateral chest pain/neck pain/low back pain/bilateral lower extremity pain. Does have history of sickle cell disease and presentation questions sickle cell crisis. Did have some chest discomfort. There is question about acute chest syndrome. Serial troponin has been negative. EKG has been nonrevealing. It is of note that the patient has been following with [facility] (last visit 2-3 years ago) and mentions that the previous stress test (performed in 2-3 years ago) in [place] has been nonrevealing (no report is available to confirm/review). Presentation is not in favor of acute coronary syndrome. Being followed by Hematology Acute chest syndrome? Sickle cell crisis General body pain History of anemia Asthma, history of Anemia Cardiac suggestion for management: Manage on telemetry Follow-up on electrolytes and kidney function tests and correct abnormalities Evaluation and management chest x-ray finding (atelectasis versus pneumonia) per primary team/pulmonary Evaluation and management of MRI findings as per primary team/ortho Pain management and fluid resuscitation as per primary team Hematology follow up Ischemic workup can be arranged as outpatient Further evaluation and management depends on the above and clinical course Cardiac gil is stable A total of 55 minutes was spent reviewing the patient record, examining the patient, making a diagnostic and therapeutic plan, discussing this plan with medical personnel, following up on diagnostic studies and following the patient for clinical stability excluding any and all procedures. At least 50% of this time was spent in direct, [id number] contact. Thank you for allowing me to participate in this patient's care. Further recommendations will depend on patient's clinical course. Please do not hesitate to contact me if you have any questions or concerns. This medical document was created using electronic medical record system with [employer] dictation system. Although this document has been carefully reviewed, there may still be some phonetic and typographical errors. These areas are purely typographical due to the imperfection of the software programs, and do not reflect any compromise in the patient's medical care. Plan discussed with: Patient, Other (nurse) MICHAEL TONG MD Nov 20, 2024 07:32
--- NOTE | 2024-11-20 09:29 | DVHPN2 ---
Progress Note - Dictate Date Seen: Nov 20, 2024 Has the PT tested + for MRSA If YES, has PT been informed?: Yes Medical Necessity Reason Pt with a Central, PICC or Fol: No Subjective Complains of low back pain and leg pains. She had MRI of the lumbar spine. vital signs Vital Sign Date Time Temp Pulse Resp B/P (MAP) Pulse Ox O2 Delivery O2 Flow Rate FiO2 11/20/24 09:10 97.8 63 20 116/72 (87) 95 97.8 11/19/24 20:00 Room Air* 0 21 Total Intake and Output 11/19/24 11/19/24 11/20/24 15:00 23:00 07:00 Intake Total 960 ml 500 ml Balance 960 ml 500 ml medications Current Medications Medications Dose Ordered Sig/Genesis Route Start Time Stop Time Status Last Admin Dose Admin Sodium Chloride 1,000 ml @ 120 mls/hr Q8H20M IV 11/17/24 22:00 11/20/24 08:10 120 MLS/HR Acetaminophen/ Hydrocodone Bitart 1 tab Q4HP PRN PO 11/17/24 22:00 Temazepam 15 mg QHSP PRN PO 11/17/24 22:00 Ondansetron HCl 4 mg Q4HP PRN IV 11/17/24 22:00 11/20/24 08:03 4 MG Docusate Sodium 100 mg BIDPRN PRN PO 11/17/24 22:00 Enoxaparin Sodium 40 mg DAILY SC 11/18/24 10:00 11/20/24 08:02 40 MG Acetaminophen 650 mg Q6HP PRN PO 11/17/24 22:00 11/18/24 16:13 650 MG Nitroglycerin 0.4 mg Q5MINP PRN SL 11/17/24 22:00 Folic Acid 1 mg DAILY PO 11/18/24 10:00 11/20/24 08:02 1 MG Pantoprazole Sodium 40 mg DAILY PO 11/18/24 10:00 11/20/24 08:02 40 MG Hydromorphone HCl 1 mg Q4HP PRN IV 11/17/24 22:00 11/19/24 06:09 1 MG Cyclobenzaprine HCl 10 mg BIDPRN PRN PO 11/18/24 16:45 Sertraline HCl 50 mg HS PO 11/18/24 22:00 objective HEAD AND NECK: Unremarkable. No neck nodes or masses. Conjunctiva: Unremarkable. No mucosal hemorrhage. CHEST: Chest wall, no tenderness. LUNGS: Clear. CARDIOVASCULAR: Regular sinus rhythm. No murmurs or gallops. ABDOMEN: No organomegaly, tenderness or ascites. Bowel sounds present. LYMPHATICS: No significant lymphadenopathy. SKIN: Unremarkable for any petechiae, purpura, or ecchymosis. Psych: No abnormalities Available data reviewed Lower extremities are sensitive to touch laboratory and microbiology Laboratory Tests 11/18/24 04:31 Test 11/18/24 04:31 Range/Units Serum Glucose 189 H 74-106 mg/dL Assessment/Plan 1.Pains in the low back and the lower extremities less likely to be thalassemia or sickle cell causing this problem. MRI of the lumbar spine showed exaggerated lumbar lordosis with multilevel degenerative changes worst at L4-5. There is mild central canal and moderate to severe left and moderate right neural foraminal stenosis at L4-5. 2. history of beta thalassemia (the reports on the electrophoresis to be obtained from 2020 from the laboratory) 3. History of gastric bypass surgery in 2000 4. History of hysterectomy in 2011 Plan: The minor thalassemia is not any hematological clinical problem. The cause of her pains are relating to DJD and the foraminal stenosis and she should get a spinal evaluation by the energy specialist and may need injection for the pain control in the low back Plan discussed with: Patient ALIVIAMELIZA MD Nov 20, 2024 09:29
[2024-11-20] MEDS ORDERED: LACT10SO3 PO (12:12)
[2024-11-20] MEDS: LACTULOSE 20Gm/30ML SOLN PO ONE (13:40)
--- NOTE | 2024-11-20 14:42 | DVH ---
Date: 11/20/2024 01:59 PM Examination: XY KUB ABDOMEN SINGLE VIEW History: r/o ileus Comparison: None TECHNIQUE: Frontal views of the abdomen was obtained. FINDINGS: Bowel gas pattern is unremarkable. The lung bases are unremarkable. No acute osseous abnormality identified. IMPRESSION: Nonobstructive bowel gas pattern. Large stool burden.
--- NOTE | 2024-11-20 16:09 | DVHDS2 ---
Discharge Summary Date of Admission Nov 17, 2024 at 21:50 Date of Discharge: Nov 20, 2024 Labs/Diagnostic Data: Laboratory Results Test 11/18/24 04:31 11/17/24 22:17 11/17/24 22:00 11/17/24 19:12 White Blood Count 3.6 10^3/uL (4.4-10.8) Red Blood Count 5.51 10^6/uL (4.0-5.20) Hemoglobin 12.1 g/dL (12.2-16.2) Hematocrit 39.6 % (36.0-46.0) Mean Corpuscular Volume 71.8 fL (80.0-100.0) Mean Corpuscular Hemoglobin 21.9 pg (28.0-32.0) Mean Corpuscular Hemoglobin Concent 30.6 g/dL (32.0-36.0) Red Cell Distribution Width 15.1 % (11.8-14.3) Platelet Count 120 10^3/uL (140-450) Mean Platelet Volume 11.9 fL (6.9-10.8) Neutrophils (%) (Auto) 88.6 % (37.0-80.0) Lymphocytes (%) (Auto) 9.7 % (10.0-50.0) Monocytes (%) (Auto) 1.7 % (0.0-12.0) Eosinophils (%) (Auto) 0.0 % (0.0-7.0) Basophils (%) (Auto) 0.0 % (0.0-2.0) Neutrophils # (Auto) 3.1 10 ^3/uL (1.6-8.6) Lymphocytes # (Auto) 0.3 10 ^3/uL (0.4-5.4) Monocytes # (Auto) 0.1 10 ^3/uL (0-1.3) Eosinophils # (Auto) 0 10 ^3/uL (0-0.8) Basophils # (Auto) 0 10 ^3/uL (0-0.2) Nucleated Red Blood Cells 0.1 % Sodium Level 140 mmol/L (136-145) Potassium Level 4.0 mmol/L (3.5-5.1) Chloride Level 107 mmol/L (98-107) Carbon Dioxide Level 23 mmol/L (20-31) Anion Gap 10 (5-15) Blood Urea Nitrogen 9 mg/dL (9-23) Creatinine 0.86 mg/dL (0.550-1.02) Glomerular Filtration Rate Calc 77 mL/min (>90) BUN/Creatinine Ratio 10.5 (10.0-20.0) Serum Glucose 189 mg/dL (74-106) Calcium Level 9.8 mg/dL (8.7-10.4) Total Bilirubin 0.3 mg/dL (0.2-1.0) Aspartate Amino Transferase (AST) 19 U/L (13-40) Alanine Aminotransferase (ALT) 15 U/L (7-40) Alkaline Phosphatase 125 U/L (46-116) Total Protein 7.9 g/dL (5.7-8.2) Albumin 4.8 g/dL (3.2-4.8) Thyroid Stimulating Hormone (TSH) 0.45 uIU/mL (0.55-4.78) Reticulocyte Count (auto) 0.77 % (0.5-1.5) Lactic Acid Level 1.9 mmol/L (0.4-2.0) Troponin I High Sensitivity < 3 ng/L (</=34) B-Type Natriuretic Peptide 25.83 pg/mL (0-100) Influenza Type A Antigen Negative (Negative) Influenza Type B Antigen Negative (Negative) SARS-CoV-2 Antigen (Rapid) Negative (NEGATIVE) Creatine Kinase 59 U/L (34-145) Other Laboratory Tests 11/18/24 04:31 Brief Hx & Hospital Course: Patient is a 59-year-old female with a history of sickle cell thalassemia and asthma brought in by family complaining of chest pain, shortness of breath and bilateral lower extremity aching and cramps. Patient is also experiencing bodyaches characterized by stiff neck and lower back pain. Patient denies any fever, cough, sick contacts or wheezing. Patient does state that she has dyspnea on mild exertion. Patient also states that chest pain is "pressure- like". Patient was admitted on November 17, 2024. Patient has a history of sickle cell thalassemia. Patient was seen by ER. Patient was admitted due to concerns that patient was having chest pain and patient was admitted for further observation for possible acute sickle cell crisis. Patient then complained of intractable back pain. MRI imaging of spine was done. Patient has severe stenosis at L4-L5. Patient was seen by hematology and cardiology. Acute coronary syndrome was ruled out. Acute sickle cell crisis was ruled out. Patient still having back pain. Patient was given a prescription for baclofen and told to follow-up outpatient with a spinal surgeon. Patient will follow-up with her PCP in 1 week. The patient received proper medical treatment and medications. Vital signs, Imaging and Laboratory Work was monitored daily. All consults recommendations were followed as provided. There were no complaints or new complaints upon discharge, all questions and concerns were answered. Patient was advised to return to the ER or call 911 if any headaches, dizziness, shortness of breath, chest pain, bleeding, fevers, or worsening of medical condition. Patient/Family was counseled about treatment plan, medications, possible side effects, patient verbalized understanding. All questions were answered to the best of my ability. The patient symptoms improved and they are okay to be DC. Condition at Discharge: Stable Final Diagnosis/Problems List Sickel Cell Beta thalassemia Chest pain Discharge Disposition: Home Discharge Instruct/Medications Diet: Cardiac 2g Na,low cholest Activity: No Restrictions, As Tolerated Follow Up/Referral: pcp 1 week Discharge Statement: "Patient was advised to return to the ER or call 911 if any headaches, dizziness, shortness of breath, chest pain, abdominal pain, bleeding, fevers, or worsening of medical condition. Patient was counseled about treatment plan, medications, possible side effects, patientverbalized understanding. All questions were answered to the best of my ability. This discharge took greater then 30 minutes in planning, reviewing documentation, counseling the patient, and discussing with other team members." ASSESSMENT ASSESSMENT Assessment Sickel Cell YUNIOR CEJA NP Nov 20, 2024 16:09
== END 2024-11-20 17:32 | disposition home or self-care (01) | DRG 202 ==
LOC: ER 17:49 → OVERFLOW 21:50 → TELE-WESTW 11-18 15:38
PROVIDERS: ADMIT Nurse Practitioner; ATTEND Nurse Practitioner
DX: J45.901 Unspecified asthma with (acute) exacerbation (principal); J18.9 Pneumonia, unspecified organism; I10 Essential (primary) hypertension; Z20.822 Contact with and (suspected) exposure to COVID-19; M48.061 Spinal stenosis, lumbar region without neurogenic claudication; M43.6 Torticollis; Z90.710 Acquired absence of both cervix and uterus; Z88.5 Allergy status to narcotic agent; Z88.0 Allergy status to penicillin; Z79.899 Other long term (current) drug therapy; Z79.2 Long term (current) use of antibiotics; Z98.84 Bariatric surgery status; Z87.891 Personal history of nicotine dependence; Z83.3 Family history of diabetes mellitus; Z82.49 Family history of ischemic heart disease and other diseases of the circulatory system
CPT/HCPCS: 36415; 71045; 72158; 74018; 80053; 82550; 83605; 83880; 84443; 84484; 85025; 85045; 87040; 87426; 87804; 93005; 93306; 94640; 96374; 96375; G0378; J2405

== ENCOUNTER 2024-12-13 18:37 | Inpatient (IN) | payer OTHER, MEDICAID ==
[~2024-12-13] VITALS: Ht 175.3 cm; Wt 73.1 kg
[~2024-12-13 18:37] MED LIST changes: -AZIT500T66 PO; -DOXY100C79 PO; +LACT10SO3 PO; -LEVO500T91 PO; -LEVO750T40 PO; -MECL1TAB42 PO; -METH4PAK PO; -PRED20TA2 PO
--- NOTE | 2024-12-13 18:55 | ED.PDOC ---
Sickle cell HPI Comments 59-year-old female came to emergency room due to chest pains. Patient has history of sickle cell disease, beta thalassemia. States few hours ago, she started having chest pains, radiating to her back. Noted also to have bilateral calf pain, dizziness and shortness a breath. Persistence of symptoms prompted patient to come to the emergency room. Chief Complaint: Chest Pain Time Seen by MD: 18:55 Primary Care Provider: NONE Reviewed Notes: Nurses Notes Information Source: Patient Mode of Arrival: Ambulatory Severity: Moderate Timing: Hours Duration: Since onset Onset: Spontaneous Symptoms: Pain, Shortness of breath Location of pain: Chest, Back, Extremity History of: Pain, Shortness of breath Associated signs and symptoms: None Past Medical History PAST MEDICAL HISTORY: Anemia, Asthma Past Medical History (Other): Sickle cell disease, beta thalassemia Surgical History: BTL, Hysterectomy, Tubal Ligation Surgical History (Other): Gastric bypass INVOICE CLERK History: No Pertinent INVOICE CLERK History Family History Family History: Reviewed,noncontributory to illness, Family hx of DM, Family hx of Cancer, Family hx of heart silverio Social History Smoker: Non-Smoker Alcohol: Denies ETOH Use Drugs: Denies Drug Use Lives In: Home Constitutional: reports: malaise; denies: chills, diaphoresis, fatigue, fever, sweats, weakness, others EENTM: denies: blurred vision, double vision, ear bleeding, ear discharge, ear drainage, ear pain, ear ringing, eye pain, eye redness, hearing loss, mouth pain, mouth swelling, nasal discharge, nose bleeding, nose congestion, nose pain, photophobia, tearing, throat pain, throat swelling, voice changes, others Respiratory: reports: SOB at rest; denies: cough, hemoptysis, orthopnea, shortness of breath, SOB with excertion, stridor, wheezing, others Cardiovascular: reports: chest pain; denies: dizzy spells, diaphoresis, Dyspnea on exertion, edema, irregular heart beat, left arm pain, lightheadedness, palpitations, PND, syncope, others Gastrointestinal: denies: abdomen distended, abdominal pain, blood streaked bowels, constipated, diarrhea, dysphagia, difficulty swallowing, hematemesis, melena, nausea, poor appetite, poor fluid intake, rectal bleeding, rectal pain, vomiting, others Genitourinary: denies: abnormal vagina bleeding, burning, dyspareunia, dysuria, flank pain, frequency, hematuria, incontinence, pain, , vagina discharge, urgency, others Neurological: denies: dizziness, fainting, headache, left sided numbness, left sided weakness, numbness, paresthesia, pre-existing deficit, right sided numbness, right sided weakness, seizure, speech problems, tingling, tremors, weakness, others Musculoskeletal: reports: back pain, muscle pain (bilateral calf pain); denies: gout, joint pain, joint swelling, muscle stiffness, neck pain, others Integumetry: denies: bruises, change in color, change in hair/nails, dryness, laceration, lesions, lumps, rash, wounds, others Allergic/Immunocompromised: denies: Difficulty Healing, Frequent Infections, Hives, Itching, others Hematologic/Lymphatic: denies: anemia, blood clots, easy bleeding, easy bruising, swollen glands, others Endocrine: denies: excessive hunger, excessive sweating, excessive thirst, excessive urination, flushing, intolerance to cold, intolerance to heat, unexplained weight gain, unexplained weight loss, others Psychiatric: denies: anxiety, bipolar disorder, depression, hopeless, panic disorder, schizophrenia, sleepless, suicidal, others Physical Exam General Appearance: No Apparent Distress, Normal HEENT: Normal ENT Inspection, Pharynx Normal, TMs Normal Neck: Full Range of Motion, Non-Tender, Normal, Normal Inspection Respiratory: Chest Non-Tender, Lungs Clear, No Accessory Muscle Use, No Respiratory Distress, Normal Breath Sounds Cardiovascular: No Edema, No JVD, No Murmur, No Gallop, Normal Peripheral Pulses, Regular Rate/Rhythm Breast Exam: Deferred Gastrointestinal: No Organomegaly, Non Tender, No Pulsatile Mass, Normal Bowel Sounds, Soft Genitalia: Deferred Pelvic: Deferred Rectal: Deferred Extremities: No calf tenderness, Normal capillary refill, Normal inspection, Normal range of motion, Non-tender, No pedal edema Musculoskeletal : Apperance: Normal Neurologic: Alert, oil 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 Was a procedure done?: No Sickle cell Differential Dx Differential Diagnosis: Acute Chest Syndrome, Aplastic Crisis, Pneumonia, Pyelonephritis X-Ray, Labs, Meds, VS Vital Signs Date Time Temp Pulse Resp B/P (MAP) Pulse Ox O2 Delivery O2 Flow Rate FiO2 12/13/24 18:59 98.3 93 18 106/68 (81) 98 98.3 12/13/24 18:42 84 Lab Test 12/13/24 19:14 Range/Units White Blood Count 6.2 4.4-10.8 10^3/uL Red Blood Count 5.47 H 4.0-5.20 10^6/uL Hemoglobin 11.9 L 12.2-16.2 g/dL Hematocrit 38.8 36.0-46.0 % Mean Corpuscular Volume 71.1 L 80.0-100.0 fL Mean Corpuscular Hemoglobin 21.9 L 28.0-32.0 pg Mean Corpuscular Hemoglobin Concent 30.8 L 32.0-36.0 g/dL Red Cell Distribution Width 14.9 H 11.8-14.3 % Platelet Count 177 140-450 10^3/uL Mean Platelet Volume 10.6 6.9-10.8 fL Neutrophils (%) (Auto) 60.9 37.0-80.0 % Lymphocytes (%) (Auto) 28.9 10.0-50.0 % Monocytes (%) (Auto) 9.4 0.0-12.0 % Eosinophils (%) (Auto) 0.7 0.0-7.0 % Basophils (%) (Auto) 0.1 0.0-2.0 % Neutrophils # (Auto) 3.8 1.6-8.6 10 ^3/uL Lymphocytes # (Auto) 1.8 0.4-5.4 10 ^3/uL Monocytes # (Auto) 0.6 0-1.3 10 ^3/uL Eosinophils # (Auto) 0 0-0.8 10 ^3/uL Basophils # (Auto) 0 0-0.2 10 ^3/uL Nucleated Red Blood Cells 0.1 % Sodium Level 143 136-145 mmol/L Potassium Level 3.8 3.5-5.1 mmol/L Chloride Level 108 H 98-107 mmol/L Carbon Dioxide Level 27 20-31 mmol/L Anion Gap 8 5-15 Blood Urea Nitrogen 14 9-23 mg/dL Creatinine 1.05 H 0.550-1.02 mg/dL Glomerular Filtration Rate Calc 61 >90 mL/min BUN/Creatinine Ratio 13.3 10.0-20.0 Serum Glucose 77 74-106 mg/dL Calcium Level 10.0 8.7-10.4 mg/dL Troponin I High Sensitivity 3 L </=34 ng/L CHEST RADIOGRAPH Indication: chest pain Technique: Single frontal view of the chest was obtained Comparison: XY CHEST XRAY 1 VIEW on DOS: 11/17/24, XY CHEST PORTABLE on DOS: 09/25/23, CHEST PORTABLE on DOS: 08/30/22 FINDINGS: Lines and Tubes: None Lungs: Persistent right basilar atelectasis Pleura: No effusion. No pneumothorax. Cardiomediastinal contours: Unremarkable Bones: No acute osseous abnormality. IMPRESSION: 1. Persistent right basilar atelectasis. Time of 1ST Reevaluation: 18:52 Reevaluation 1ST: Unchanged Patient Education/Counseling: Diagnosis, Treatment Family Education/Counseling: No Family Present Departure 1 Departure Time of Disposition: 20:51 (Patient presented with chest pain that was concerning for possible STEMI, ACS, PE, Pneumonia, Muscle Strain, COPD, Dissection. Data: 1. I ordered and reviewed the result of at least 3 labs including a CBC, BMP, and Troponin. 2. I independently interpreted the following tests: EKG which shows sinus arrhythmia and Chest X-ray which shows atelectasis.Risk:This patient has a high risk of morbidity due to further diagnostic testing or treatment and may suffer from an acute cardiac or respiratory disorder. Workup reveals concern for ACS versus acute chest versus sickle cell crisis and patient should be admitted for further workup and possible expert consultation. 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 This critical care time included obtaining a history; examining the patient; pulse oximetry; ordering and review of studies; arranging urgent treatment with development of a management plan; evaluation of patient's response to treatment; frequent reassessment; and, discussions with other providers. This critical care time was performed to assess and manage the high probability of imminent, life-threatening deterioration that could result in multi-organ failure. It was exclusive of separately billable procedures and treating other patients and teaching time. Please see my other sections and the rest of the note for further information on patient assessment and treatment. Stability Stability form required: No Heart Score Heart Score: Heart Score Response (Comments) Value History N/A 0 EKG N/A 0 Age N/A 0 Risk Factors N/A 0 Troponin N/A 0 Total 0 I personally scribed for FAYE WALDEN MD ([facility] on 12/13/24 at 18:55. Electronically submitted by Bairon Ortgea ([email or web address]). I personally scribed for FAYE WALDEN MD ([facility] on 12/13/24 at 20:14. Electronically submitted by Bairon Ortega ([email or web address]). FAYE WALDEN MD Dec 13, 2024 18:55
[2024-12-13] MEDS: SODIUM CHLORIDE 0.9% 1,000 ML IV ONE (19:00)
--- NOTE | 2024-12-13 19:28 | DVH ---
CHEST RADIOGRAPH Indication: chest pain Technique: Single frontal view of the chest was obtained Comparison: XY CHEST XRAY 1 VIEW on DOS: 11/17/24, XY CHEST PORTABLE on DOS: 09/25/23, CHEST PORTABLE on DOS: 08/30/22 FINDINGS: Lines and Tubes: None Lungs: Persistent right basilar atelectasis Pleura: No effusion. No pneumothorax. Cardiomediastinal contours: Unremarkable Bones: No acute osseous abnormality. IMPRESSION: 1. Persistent right basilar atelectasis.
[2024-12-13 19:38] LABS: Basophils # (auto) 0 10 ^3/uL (0-0.2); Basophils % (auto) 0.1 % (0.0-2.0); Eosinophils # (auto) 0 10 ^3/uL (0-0.8); Hemoglobin 11.9 g/dL (12.2-16.2); Lymphocytes # (auto) 1.8 10 ^3/uL (0.4-5.4); Neutrophils # (auto) 3.8 10 ^3/uL (1.6-8.6); Potassium 3.8 mmol/L (3.5-5.1); Sodium 143 mmol/L (136-145); White Blood Cell 6.2 10^3/uL (4.4-10.8)
[2024-12-13 19:39] LABS: Anion Gap 8 (5-15); Carbon Dioxide 27 mmol/L (20-31)
[2024-12-13 19:40] LABS: Eosinophils % (auto) 0.7 % (0.0-7.0); Hematocrit 38.8 % (36.0-46.0); Lymphocytes % (auto) 28.9 % (10.0-50.0); Mean Corpuscular Hemoglobin 21.9 pg (28.0-32.0); Mean Corpuscular Hgb Conc. 30.8 g/dL (32.0-36.0); Mean Corpuscular Volume 71.1 fL (80.0-100.0); Monocytes # (auto) 0.6 10 ^3/uL (0-1.3); Monocytes % (auto) 9.4 % (0.0-12.0); Neutrophils % (auto) 60.9 % (37.0-80.0); Nucleated Red Blood Cells % 0.1 %; Platelet Count (auto) 177 10^3/uL (140-450); Red Blood Cells 5.47 10^6/uL (4.0-5.20); Red Cell Distribution Width 14.9 % (11.8-14.3)
[2024-12-13 19:44] LABS: BUN/Creatinine Ratio 13.3 (10.0-20.0); Blood Urea Nitrogen 14 mg/dL (9-23); Chloride 108 mmol/L (98-107); Glucose 77 mg/dL (74-106)
[2024-12-13] MEDS: SOD CHL 0.45% 1,000 ML IV SCH (21:30)
[2024-12-13] MEDS ORDERED: ALBUTEROL SULF 2.5 MG/0.5ML(0.5%) NEB SOLN NEB PRN (21:30)
[2024-12-13] MEDS ORDERED: DOCUSATE SOD 100 MG CAP PO PRN (21:30)
[2024-12-13] MEDS ORDERED: IPRATROPIUM BROM 0.5 MG/2.5ML INH SOL NEB PRN (21:30)
[2024-12-13] MEDS ORDERED: NITROGLYCERIN 0.4 MG SL TAB SL PRN (22:00)
[2024-12-13] MEDS ORDERED: MORPHINE SULFATE INJ 2 MG/ml SYRG IV PRN (22:00)
--- NOTE | 2024-12-13 22:02 | DVHHP2 ---
History of Present Illness Reason for Visit: Acute chest pain History of Present Illness The patient is a 59-year-old female with multiple past medical history including anemia, asthma, and sickle cell anemia who presented to [facility] ED with complaint of chest pain. Patient reports she has been having chest pain radiating to her back, associated dizziness, shortness of breaths bilateral calf pain, getting worse that prompted this visit. Patient was seen and evaluated in the ED, laboratory data shows WBC 6.2, platelets 177, sodium 143, potassium 3.8, BUN 14, creatinine 1.05, GFR 61, glucose 77, troponin 3. Chest x-ray revealing persistent right bibasilar atelectasis. Patient was given IV morphine sulfate 4 mg x 1, please see medication orders section in the computer. On my assessment, patient denied chest pain at this moment, no headache, no dizziness, no shortness of breaths, no nausea, no vomiting, no fever, no chills. Patient was admitted for further evaluation medical management. Past Medical History Anemia, Asthma, Sickle cell disease, beta thalassemia Past Surgical History BTL, Hysterectomy, Tubal Ligation, Gastric bypass Family History Reviewed, noncontributory to the management of this case. Past Social History The patient lives at home, denies smoking, alcohol or illicit drugs abuse. Review of Systems Constitutional: Yes: Weakness, Malaise; No: Fever, Chills, Sweats, Other Eyes: No: Pain, Vision change, Conjunctivae inflammation, Eyelid inflammation, Other, Redness ENT: No: Ear pain, Ear discharge, Nose pain, Nose discharge, Nose congestion, Mouth pain, Mouth swelling, Throat pain, Throat swelling, Other Respiratory: No: Cough, Dry, Shortness of breath, SOB with excertion, Wheezing, Hemoptysis, Pleuritic Pain, Sputum, Wheezing, Other Cardiovascular: Chest Pain; No: Palpitations, Orthopnea, Paroxysmal Noc. Dyspnea, Edema, Lt Headedness, Other Gastrointestinal: No: Nausea, Vomiting, Abdominal Pain, Diarrhea, Constipation, Melena, Hematochezia, Other Genitourinary: No Dysuria, No Frequency, No Incontinence, No Hematuria, No Retention, No Other Musculoskeletal: other (Muscle pain, bilateral calf pain.), back pain; No: neck pain, shoulder pain, arm pain, hand pain, leg pain, foot pain Skin: No: Rash, Lesions, Jaundice, Bruising, Other Neurological: No: Weakness, Numbness, Incoordination, Change in speech, Confusion, Seizures, Other Allergies: Coded Allergies: Codeine (Verified Allergy, Unknown, 04/17/22) Penicillins (Verified Allergy, Unknown, 04/17/22) Medications Current Medications Medications Dose Ordered Sig/Genesis Route Start Time Stop Time Status Last Admin Dose Admin Albuterol 2.5 mg Q4HPRN PRN NEB 12/13/24 21:30 Ipratropium [place] 0.5 mg Q4HPRN PRN NEB 12/13/24 21:30 Ondansetron HCl 4 mg Q4HP PRN IV 12/13/24 21:30 Docusate Sodium 100 mg BIDPRN PRN PO 12/13/24 21:30 Acetaminophen 650 mg Q6HP PRN PO 12/13/24 21:30 Morphine Sulfate 2 mg Q4HPRN PRN IV 12/13/24 21:30 Sodium Chloride 1,000 ml @ 100 mls/hr Q10H IV 12/13/24 21:30 Exam Vital Signs Vital Signs Date Time Temp Pulse Resp B/P (MAP) Pulse Ox O2 Delivery O2 Flow Rate FiO2 12/13/24 18:59 98.3 93 18 106/68 (81) 98 98.3 General Appearance: Alert, Oriented X3, Cooperative, No acute distress HEENT: Atraumatic, PERRLA, EOMI, Mucous membr. moist/pink Respiratory: Clear to auscultation, Normal air movement Cardiovascular: Regular rate, Normal S1, Normal S2, No murmurs Abdominal: Normal bowel sounds, Soft, No tenderness, No hepatospenomegaly, No masses Extremities: No clubbing, No cyanosis, No edema, Normal pulses, No tenderness/swelling Skin: No rashes, No breakdown, No significant lesion Neuro: Normal speech, Normal tone, Sensation intact, Cranial nerves 3-12 NL, Reflexes 2+, Other (Generalized weakness) Psych/Mental Status: Mental status NL, Mood NL Labs/Xrays Labs Test 12/13/24 19:14 Range/Units White Blood Count 6.2 4.4-10.8 10^3/uL Red Blood Count 5.47 H 4.0-5.20 10^6/uL Hemoglobin 11.9 L 12.2-16.2 g/dL Hematocrit 38.8 36.0-46.0 % Mean Corpuscular Volume 71.1 L 80.0-100.0 fL Mean Corpuscular Hemoglobin 21.9 L 28.0-32.0 pg Mean Corpuscular Hemoglobin Concent 30.8 L 32.0-36.0 g/dL Red Cell Distribution Width 14.9 H 11.8-14.3 % Platelet Count 177 140-450 10^3/uL Mean Platelet Volume 10.6 6.9-10.8 fL Neutrophils (%) (Auto) 60.9 37.0-80.0 % Lymphocytes (%) (Auto) 28.9 10.0-50.0 % Monocytes (%) (Auto) 9.4 0.0-12.0 % Eosinophils (%) (Auto) 0.7 0.0-7.0 % Basophils (%) (Auto) 0.1 0.0-2.0 % Neutrophils # (Auto) 3.8 1.6-8.6 10 ^3/uL Lymphocytes # (Auto) 1.8 0.4-5.4 10 ^3/uL Monocytes # (Auto) 0.6 0-1.3 10 ^3/uL Eosinophils # (Auto) 0 0-0.8 10 ^3/uL Basophils # (Auto) 0 0-0.2 10 ^3/uL Nucleated Red Blood Cells 0.1 % Sodium Level 143 136-145 mmol/L Potassium Level 3.8 3.5-5.1 mmol/L Chloride Level 108 H 98-107 mmol/L Carbon Dioxide Level 27 20-31 mmol/L Anion Gap 8 5-15 Blood Urea Nitrogen 14 9-23 mg/dL Creatinine 1.05 H 0.550-1.02 mg/dL Glomerular Filtration Rate Calc 61 >90 mL/min BUN/Creatinine Ratio 13.3 10.0-20.0 Serum Glucose 77 74-106 mg/dL Calcium Level 10.0 8.7-10.4 mg/dL Troponin I High Sensitivity 3 L </=34 ng/L PATIENT: THERESE NIELSENCT: [id number] UNIT: [id number] : 1965 LOC: ER ROOM / BED: / AGE / SEX: 59 / F ADM STATUS: REG ER SERVICE [id number] ORDERING PHYSICIAN: FAYE DUFFY MD PROCEDURE(s): CXRP - CHEST PORTABLE REASON: chest pain ORDER NUMBER(s): [id number], ACCESSION NUMBER(s): [id number] CHEST RADIOGRAPH Indication: chest pain Technique: Single frontal view of the chest was obtained Comparison: XY CHEST XRAY 1 VIEW on DOS: 11/17/24, XY CHEST PORTABLE on DOS: 09/25/23, CHEST PORTABLE on DOS: 08/30/22 FINDINGS: Lines and Tubes: None Lungs: Persistent right basilar atelectasis Pleura: No effusion. No pneumothorax. Cardiomediastinal contours: Unremarkable Bones: No acute osseous abnormality. IMPRESSION: 1. Persistent right basilar atelectasis. 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 Admit to telemetry unit 2. Breathing treatment 3. Pain control management 4. Management of fluids and electrolytes 5. Consultation for hospitalist 6. Diagnostic tests chest x-ray 7. DVT prophylaxis-on SCDs 8. Repeat labs CBC, CMP in a.m. 9. Continue with current medical management 10. Treatment plan discussed with patient and RN. Patient verbalized understanding. Plan discussed with: Patient, Other (RN) My Orders Orders - OLGA DURAND DNP Procedure Category Date Status Time Albuterol Medneb PHA 12/13/24 In Process (Ventolin Medneb) 21:30 Ipratropium Medneb PHA 12/13/24 In Process (Atrovent Medneb) 21:30 Allergies RONA 12/13/24 In Process 21:21 Code Status CODE 12/13/24 Transmitted 21:21 Oxygen Per Hour RT 12/13/24 Transmitted 21:21 Ondansetron Hcl PHA 12/13/24 In Process (Zofran) 21:30 Docusate Sodium PHA 12/13/24 In Process Capsule (Colace 21:30 Complete Blood Count LAB 12/14/24 Verified 04:00 Comprehensive LAB 12/14/24 Verified Metabolic Panel 04:00 Cardiac DIET 12/14/24 Transmitted Diet-2gna,Lofat,Lochol Breakfast Condition: Serious RONA 12/13/24 In Process 21:21 Acetaminophen Tablet PHA 12/13/24 In Process (Tylenol Tablet) 21:30 Bedrest With Bathroom RONA 12/13/24 In Process Privileg 21:21 Morphine Sulfate PHA 12/13/24 In Process Injection 21:30 Sequential RONA 12/13/24 In Process Compression Device Sod Chl 0.45% (Sodium PHA 12/13/24 In Process Chloride 0.45% Via 21:30 Admit ADMIT 12/13/24 Verified 22:00 Nitroglycerin PHA 12/13/24 Verified Sublingual (Ntrostat 22:00 Morphine Sulfate PHA 12/13/24 Verified Injection 22:00 Notify Of Changes [facility] 12/13/24 Verified From Base 22:00 Towing Pilot For [facility] 12/13/24 Verified 24 Hours 22:00 Emergency Dysrhythmia RONA 12/13/24 Verified Protocol 22:00 Rhythm Strips Once RONA 12/13/24 Verified Every Shift 22:00 Oxygen By Nasal RT 12/13/24 Verified Cannula 22:00 Problem List: (1) Acute chest pain (2) Generalized weakness (3) Sickle cell anemia (4) 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
[2024-12-13 23:11] LABS: Urine Bacteria None Seen /hpf (None Seen)
[2024-12-13 23:23] LABS: Urine Blood Negative /uL (Negative); Urine Clarity Turbid (Clear); Urine Color Yellow (Yellow); Urine Hyaline Cast FEW /lpf (0 - 2); Urine Mucus FEW (None Seen); Urine Protein, UAD TRACE (Negative); Urine Specific Gravity 1.025 (1.001-1.035); Urine Squamous Epithelial Cell FEW /hpf (<5); Urine Urobilinogen 2 mg/dL (Negative); Urine WBC 17 /HPF (0-5); Urine pH 5.5 (5.0-9.0)
[2024-12-13] MEDS: MORPHINE SULFATE 4 MG/ML SYR/VIAL IV ONE (23:25)
[2024-12-13] MEDS: ONDANSETRON HCL 4 MG/2 ML VIAL IV ONE (23:26)
[2024-12-13 23:57] VITALS: BP 122/71; PULSE 74; RESP 18; TEMP 98.7; O2SAT 98
[2024-12-14] VITALS (12 sets, daily range): BP systolic 111–131; BP diastolic 61–75; PULSE 56–79; RESP 18–19; TEMP 97.5–98.8; O2SAT 95–100
[2024-12-14] MEDS: ONDANSETRON HCL 4 MG/2 ML VIAL IV PRN (00:06)
[2024-12-14] MEDS: MORPHINE SULFATE INJ 2 MG/ml SYRG IV PRN (00:08)
[2024-12-14] MEDS: ACETAMINOPHEN 325 MG TAB PO PRN (00:51)
[2024-12-14 06:17] LABS: Basophils # (auto) 0 10 ^3/uL (0-0.2); Basophils % (auto) 0.1 % (0.0-2.0); Eosinophils # (auto) 0.1 10 ^3/uL (0-0.8); Hemoglobin 10.6 g/dL (12.2-16.2); Lymphocytes # (auto) 1.8 10 ^3/uL (0.4-5.4); Monocytes # (auto) 0.5 10 ^3/uL (0-1.3); Monocytes % (auto) 11.2 % (0.0-12.0); Neutrophils # (auto) 1.9 10 ^3/uL (1.6-8.6); White Blood Cell 4.3 10^3/uL (4.4-10.8)
[2024-12-14 06:19] LABS: Eosinophils % (auto) 2.2 % (0.0-7.0); Hematocrit 33.1 % (36.0-46.0); Lymphocytes % (auto) 41.7 % (10.0-50.0); Mean Corpuscular Hemoglobin 22.6 pg (28.0-32.0); Mean Corpuscular Volume 70.6 fL (80.0-100.0); Neutrophils % (auto) 44.8 % (37.0-80.0); Platelet Count (auto) 127 10^3/uL (140-450); Red Blood Cells 4.69 10^6/uL (4.0-5.20); Red Cell Distribution Width 14.6 % (11.8-14.3)
[2024-12-14 06:34] LABS: Alanine Aminotransferase 11 U/L (7-40); Albumin 4.2 g/dL (3.2-4.8); Alkaline Phosphatase 114 U/L (46-116); Anion Gap 9 (5-15); Aspartate Aminotransferase 14 U/L (13-40); BUN/Creatinine Ratio 16.5 (10.0-20.0); Bilirubin, Total 0.6 mg/dL (0.2-1.0); Blood Urea Nitrogen 15 mg/dL (9-23); Calcium 9.7 mg/dL (8.7-10.4); Carbon Dioxide 27 mmol/L (20-31); Chloride 106 mmol/L (98-107); Glucose 75 mg/dL (74-106); Potassium 3.8 mmol/L (3.5-5.1); Sodium 142 mmol/L (136-145); Total Protein 7.2 g/dL (5.7-8.2)
--- NOTE | 2024-12-14 17:11 | DVH ---
Bilateral lower extremity venous duplex Clinical History: Patient complaining of bilateral lower extremity calf pain Comparison: None Technique: Duplex Doppler evaluation of the deep venous systems of both lower extremities from the common femora l veins to the popliteal veins including color Doppler and spectral/pulsed waveform analysis was perf ormed. Findings: RIGHT SIDE: The common femoral vein demonstrates appropriate compressibility and waveform variability. There is compressibility/patency of the great saphenous vein at the proximal thigh. The femoral vein demonstrates appropriate compressibility and waveform variability. The deep femoral vein demonstrates appropriate compressibility and waveform variability. The popliteal vein demonstrates appropriate compressibility and waveform variability. There is normal compressibility at the tibioperoneal trunk. LEFT SIDE: The common femoral vein demonstrates appropriate compressibility and waveform variability. There is compressibility/patency of the great saphenous vein at the proximal thigh. The femoral vein demonstrates appropriate compressibility and waveform variability. The deep femoral vein demonstrates appropriate compressibility and waveform variability. The popliteal vein demonstrates appropriate compressibility and waveform variability. There is normal compressibility at the tibioperoneal trunk. Impression: 1. No right or left femoropopliteal venous thrombosis.
--- NOTE | 2024-12-14 23:05 | DVHPN2 ---
Subjective The patient is seen and examined at bedside. Complain of severe pain. Reviewed: Care Plan, H&P, Labs, Medications, Previous Orders, Radiology Changes from previous H/P or p: No Changes Eyes: No Pain, No Vision change, No Conjunctivae inflammation, No Eyelid inflammation, No Other, No Redness ENT: No Ear pain, No Ear discharge, No Nose pain, No Nose discharge, No Nose congestion, No Mouth pain, No Mouth swelling, No Throat pain, No Throat swelling, No Other Cardiovascular: Chest Pain; No Palpitations, No Orthopnea, No Paroxysmal Noc. Dyspnea, No Edema, No Lt Headedness, No Other Respiratory: No Cough, No Dry, No Shortness of breath, No SOB with excertion, No Wheezing, No Hemoptysis, No Pleuritic Pain, No Sputum, No Other Gastrointestinal: No Nausea, No Vomiting, No Abdominal Pain, No Diarrhea, No Constipation, No Melena, No Hematochezia, No Other Genitourinary: No Dysuria, No Frequency, No Incontinence, No Hematuria, No Retention, No Other Musculoskeletal: other (Muscle pain, bilateral calf pain.); No neck pain, No shoulder pain, No arm pain; back pain; No hand pain, No leg pain, No foot pain Skin: No Rash, No Lesions, No Jaundice, No Bruising, No Other Objective Vitals Vital Signs Date Time Temp Pulse Resp B/P (MAP) Pulse Ox O2 Delivery O2 Flow Rate FiO2 12/14/24 21:00 98.1 68 19 131/72 (91) 97 98.1 12/14/24 19:41 Room Air 12/14/24 19:41 0 21 Intake/Output Intake and Output 12/14/24 07:00 Intake Total 200 ml Output Total 0 ml Balance 200 ml Intake Oral 200 ml Output Urine Total 0 ml General Appearance: Alert, Oriented X3, Cooperative, No acute distress HEENT: Atraumatic, PERRLA, EOMI, Mucous membr. moist/pink Neck: Supple Lungs: Clear to auscultation, Normal air movement Cardiovascular: Regular rate, Normal S1, Normal S2, No murmurs, Gallops, Rubs Abdomen: Normal bowel sounds, Soft, No tenderness Neuro: Cranial nerves 3-12 NL Psych/Mental Status: Mental status NL Medications Current Medications Medications Dose Ordered Sig/Genesis Route Start Time Stop Time Status Last Admin Dose Admin Albuterol 2.5 mg Q4HPRN PRN NEB 12/13/24 21:30 Ipratropium Russell 0.5 mg Q4HPRN PRN NEB 12/13/24 21:30 Ondansetron HCl 4 mg Q4HP PRN IV 12/13/24 21:30 12/14/24 00:06 4 MG Docusate Sodium 100 mg BIDPRN PRN PO 12/13/24 21:30 Acetaminophen 650 mg Q6HP PRN PO 12/13/24 21:30 12/14/24 00:51 650 MG Morphine Sulfate 2 mg Q4HPRN PRN IV 12/13/24 21:30 12/14/24 17:06 2 MG Sodium Chloride 1,000 ml @ 100 mls/hr Q10H IV 12/13/24 21:30 12/14/24 17:05 100 MLS/HR Nitroglycerin 0.4 mg Q5MINP PRN SL 12/13/24 22:00 Morphine Sulfate 2 mg Q30M PRN IV 12/13/24 22:00 Enoxaparin Sodium 40 mg DAILY SC 12/15/24 10:00 Laboratory Results Laboratory Tests 12/14/24 04:57 Chemistry Test 12/14/24 04:57 Albumin 4.2 g/dL (3.2-4.8) Calcium Level 9.7 mg/dL (8.7-10.4) Total Protein 7.2 g/dL (5.7-8.2) LFT Test 12/14/24 04:57 Alanine Aminotransferase (ALT) 11 U/L (7-40) Alkaline Phosphatase 114 U/L (46-116) Aspartate Amino Transferase (AST) 14 U/L (13-40) Total Bilirubin 0.6 mg/dL (0.2-1.0) Urinalysis Test 12/13/24 22:38 Urine Color Yellow (Yellow) Urine Clarity Turbid (Clear) H Urine pH 5.5 (5.0-9.0) Urine Specific Marceline 1.025 (1.001-1.035) Urine Protein Trace (Negative) H Urine Ketones Negative (Negative) Urine Blood Negative /uL (Negative) Urine Nitrite Negative (Negative) Urine Bilirubin Negative (Negative) Urine Urobilinogen 2 mg/dL (Negative) H Urine Leukocyte Esterase 3+ /uL (Negative) Urine RBC 8 /hpf (0 - 4) Urine Microscopic WBC 17 /HPF (0-5) H Urine Squamous Epithelial Cells Few /hpf (<5) Urine Bacteria None seen /hpf (None Seen) Urine Hyaline Casts Few /lpf (0 - 2) Urine Mucus Few (None Seen) Urine Glucose Normal mg/dL (Normal) Labs and/or images reviewed: Labs reviewed by me Assessment/Plan Assessment/Plan Acute chest pain Generalized weakness Sickle cell anemia 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 Continuing with IV fluid Continuing with IV pain medication We will order an ultrasound to rule out DVT lower extremities We will order nebulizer q.6 p.r.n. for shortness a breath This medical document was created using an electronic medical record system with [employer] direct computerized dictation system. Although this document has been carefully reviewed, there may still be some phonetic and typographical errors. These areas are purely typographical due to imperfections of the software programs, and do not reflect any compromise in the patient's medical care. Plan discussed with: Patient My Orders Orders - BRE PORTILLO MD Procedure Category Date Status Time Bilat Lower Dvt US 12/14/24 Resulted 16:27 Enoxaparin Sodium PHA 12/15/24 In Process (Lovenox) 10:00 Date of Service: Dec 14, 2024 Billing Provider: BRE PORTILLO MD Common Visit Codes: [id number] INP/OBS CARE(HIGH) BRE PORTILLO MD Dec 14, 2024 23:05
[2024-12-15] VITALS (9 sets, daily range): BP systolic 103–128; BP diastolic 58–78; PULSE 61–71; RESP 16–19; TEMP 97.3–98.6; O2SAT 95–99
[2024-12-15] MEDS: ENOXAPARIN SOD 40 MG/0.4 ML SYRINGE SC SCH (10:00)
--- NOTE | 2024-12-15 10:08 | ECG ---
[facility] Test Date: 2024-12-13 Test Time: 18:42:48 [facility] Room: 0216T B Gender: F Ground Wirer: TRISTON : 1965 Requested By: JIN HERBERT Order Number: [id number] Reading MD: Ortiz Mann Measurements Intervals Colman Rate: 84 P: 72 WY: 149 QRS: 52 QRSD: 86 T: 46 QT: 377 QTc: 446 Interpretive Statements Sinus rhythm Electronically Signed On 12-18-2024 13:16:59 PDT by Ortiz Mann Please click the below link to view image of tracing.
[2024-12-15 10:45] LABS: Basophils # (auto) 0 10 ^3/uL (0-0.2); Eosinophils # (auto) 0.1 10 ^3/uL (0-0.8); Eosinophils % (auto) 2.1 % (0.0-7.0); Lymphocytes # (auto) 1.2 10 ^3/uL (0.4-5.4); Monocytes # (auto) 0.5 10 ^3/uL (0-1.3); White Blood Cell 6.1 10^3/uL (4.4-10.8)
[2024-12-15 10:49] LABS: Basophils % (auto) 0.4 % (0.0-2.0); Hematocrit 36.2 % (36.0-46.0); Hemoglobin 11.3 g/dL (12.2-16.2); Mean Corpuscular Hemoglobin 22.1 pg (28.0-32.0); Mean Corpuscular Hgb Conc. 31.2 g/dL (32.0-36.0); Monocytes % (auto) 8.7 % (0.0-12.0); Neutrophils # (auto) 4.3 10 ^3/uL (1.6-8.6); Neutrophils % (auto) 69.8 % (37.0-80.0); Nucleated Red Blood Cells % 0.1 %; Platelet Count (auto) 145 10^3/uL (140-450); Red Blood Cells 5.09 10^6/uL (4.0-5.20); Red Cell Distribution Width 14.6 % (11.8-14.3)
[2024-12-15 10:55] LABS: Calcium 9.7 mg/dL (8.7-10.4); Sodium 142 mmol/L (136-145)
[2024-12-15 10:56] LABS: Anion Gap 9 (5-15); Carbon Dioxide 25 mmol/L (20-31)
[2024-12-15 11:01] LABS: BUN/Creatinine Ratio 14.3 (10.0-20.0); Blood Urea Nitrogen 11 mg/dL (9-23); Glucose 81 mg/dL (74-106)
[2024-12-15 11:11] LABS: Chloride 108 mmol/L (98-107)
[2024-12-15] MEDS: MECLIZINE HCL 25 MG TAB PO PRN (13:21)
[2024-12-15] MEDS: SODIUM CHLORIDE 0.9% 1,000 ML IV ONE (13:24)
[2024-12-15] MEDS ORDERED: ROPIVACAINE HCL 200 ML ONE (18:52)
[2024-12-16] VITALS (8 sets, daily range): BP systolic 110–133; BP diastolic 52–71; PULSE 58–71; RESP 16–20; TEMP 97.5–98.3; O2SAT 97–99
[2024-12-16] MEDS ORDERED: cefTRIAXone 1GM/50ML D5W 50 ML IV SCH (12:00)
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
[2024-12-16] MEDS: levoFLOXacin 500 MG TAB PO ONE (13:15)
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
[2024-12-16] MEDS: MECLIZINE HCL 25 MG TAB PO SCH (19:53)
[2024-12-17 01:00] VITALS: BP_SYST 109; BP_SYST 118; BP_DIAS 60; BP_DIAS 61; PULSE 60; PULSE 65; RESP 18; TEMP 97.3; TEMP 97.6; O2SAT 96; O2SAT 97
[2024-12-17 05:00] VITALS: BP 109/60; PULSE 60; RESP 18; TEMP 97.3; O2SAT 96
[2024-12-17 08:00] VITALS: PULSE 70
[2024-12-17 08:45] VITALS: BP 116/59; PULSE 60; RESP 20; TEMP 98.4; O2SAT 98
[2024-12-17] MEDS: levoFLOXacin 500 MG TAB PO SCH (11:22)
[2024-12-17 12:39] VITALS: BP 115/62; PULSE 66; RESP 20; TEMP 97.8; O2SAT 92
[2024-12-17] MEDS ORDERED: MECL1TAB42 PO (15:22)
[2024-12-17] MEDS ORDERED: LEVO500T91 PO (15:22)
== END 2024-12-17 15:42 | disposition home or self-care (01) | DRG 812 ==
LOC: ER 18:37 → OVERFLOW 22:00 → TELE-CENTR 23:35
PROVIDERS: ADMIT Nurse Practitioner Acute Care; ATTEND Nurse Practitioner Acute Care
DX: D57.418 Sickle-cell thalassemia, unspecified, with crisis with other specified complication (principal); J98.11 Atelectasis; N39.0 Urinary tract infection, site not specified; J45.909 Unspecified asthma, uncomplicated; F07.81 Postconcussional syndrome; S09.90XA Unspecified injury of head, initial encounter; D64.9 Anemia, unspecified; Z90.710 Acquired absence of both cervix and uterus; Z88.5 Allergy status to narcotic agent; Z88.0 Allergy status to penicillin; Y08.89XA Assault by other specified means, initial encounter; Y93.89 Activity, other specified; Y92.89 Other specified places as the place of occurrence of the external cause; Y99.8 Other external cause status; Z98.84 Bariatric surgery status
CPT/HCPCS: 36415; 70450; 70486; 71045; 80048; 80053; 81001; 84484; 85025; 93005; 93970; 96374; 99291; G0378; J2405